=== PATIENT | female | born 1990 | race Caucasian/White ===

== ENCOUNTER → 2016-03-05 | Outpatient (CLI) | payer OTHER ==
[2016-03-05 11:18] LABS: CH 29.2; HCT 41.2 % (34.0-46.0); HDW 2.45; HGB 13.5 gm/dL (11.4-16.0); MCH 29.2 pg (25.0-35.0); MCHC 32.8 g/dL (31.0-37.0); MCV 88.9 fL (80.0-100.0); Mean Platelet Volume 7.9; RBC 4.63 m/uL (3.80-5.40); RDW 13.6 % (11.5-15.5); WBC 7.1 k/uL (3.8-10.6)
[2016-03-05 12:01] LABS: Glucose 81 mg/dL (74-99); Non-African American GFR(MDRD) >60 (>60 ml/min/1.73 sqM)
[2016-03-05 12:32] LABS: Hepatitis B Surface Ag Index 0.06
[2016-03-06 08:04] LABS: HIV-1/HIV-2 Ab Screen NONREAC (NON REAC)
== END | disposition home or self-care (01) ==
LOC: LABWHC1 10:07
PROVIDERS: ATTEND Obstetrics & Gynecology
DX: O26.811 Pregnancy related exhaustion and fatigue, first trimester (principal); Z3A.00 Weeks of gestation of pregnancy not specified
CPT/HCPCS: 36415; 82565; 82947; 85027; 86762; 86780; 86850; 86900; 86901; 87340; 87389

== ENCOUNTER → 2016-03-26 | Outpatient (CLI) | payer OTHER ==
[2016-03-26 14:55] LABS: Basophils % (A) 0 %; CH 29.9; CHCM 33.9; Eosinophils # (A) 0.1 k/uL (0-0.7); Eosinophils % (A) 1 %; HDW 2.49; Luc # (Auto) 0.14; Luc % (Auto) 1; Lymphocytes # (A) 2.7 k/uL (1.0-4.8); Lymphocytes % (A) 25 %; MCH 28.8 pg (25.0-35.0); MCHC 32.5 g/dL (31.0-37.0); MCV 88.4 fL (80.0-100.0); Mean Platelet Volume 8.2; Monocytes # (A) 0.4 k/uL (0-1.0); Monocytes % (A) 3 %; Neutrophils # (A) 7.4 k/uL (1.3-7.7); Neutrophils % (A) 69 %; RBC 4.86 m/uL (3.80-5.40); RDW 13.7 % (11.5-15.5); WBC 10.7 k/uL (3.8-10.6); WBC (Perox) 10.39
== END | disposition home or self-care (01) ==
LOC: LABPAT 14:32
PROVIDERS: ATTEND Obstetrics & Gynecology
DX: Z01.812 Encounter for preprocedural laboratory examination (principal)
CPT/HCPCS: 36415; 85025

== ENCOUNTER 2016-04-08 05:54 | Observation (INO) | payer OTHER ==
--- NOTE | 2016-04-07 09:08 | P.HPOB ---
History of Present Illness H&P Date: 04/07/16 Chief Complaint: cervical incompetence 25 year old presents at 14 weeks 1 day for cervical cerclage. She has had 2 deliveries from cervical incompetence and labor. The first delivered at 26 weeks and the second 32 weeks after cerclage and progesterone injections. She is here today for cerclage placement by [facility] recommendations. Review of Systems All systems: negative Constitutional: Denies chills, Denies fever Eyes: denies blurred vision, denies pain Ears, nose, mouth and throat: Denies headache, Denies sore throat Cardiovascular: Denies chest pain, Denies shortness of breath Respiratory: Denies cough Gastrointestinal: Denies abdominal pain, Denies diarrhea, Denies nausea, Denies vomiting Genitourinary: Denies dysuria, Denies hematuria Musculoskeletal: Denies myalgias Integumentary: Denies pruritus, Denies rash Neurological: Denies numbness, Denies weakness Psychiatric: Denies anxiety, Denies depression Endocrine: Denies fatigue, Denies weight change Past Medical History Past Medical History: GERD/Reflux Additional Past Medical History / Comment(s): Obstetrical history: With patient' s first she spontaneously delivered at 26 weeks. Her second she had a cerclage and progesterone injections. She delivered at 32 weeks after her water broke and the cerclage had to be removed. History of Any Multi-Drug Resistant Organisms: None Reported Additional Past Surgical History / Comment(s): Cerclage Past Anesthesia/Blood Transfusion Reactions: Postoperative Nausea & Vomiting ( PONV) Past Psychological History: Anxiety Smoking Status: Never smoker Past Alcohol Use History: None Reported Past Drug Use History: None Reported - Past Family History Mother Family Medical History: No Reported History Medications and Allergies Home Medications Medication Instructions Recorded Confirmed Type Aby-Xzcy-Senxp Acid 1 each PO HS 08/01/13 04/04/16 History [-U Capsule] Allergies Allergy/AdvReac Type Severity Reaction Status Date / Time No Known Allergies Allergy Verified 04/04/16 08:57 Exam Osteopathic Statement: *. No significant issues noted on an osteopathic structural exam other than those noted in the History and Physical/Consult. HEart: RRR Lungs: CTAB Abdomen: soft, nontender Extremeties: neg lisette's Assessment and Plan (1) Cervical incompetence Status: Acute Plan: 1. cervical cerclage. All R/B/A discussed with patient and family.
[~2016-04-08 05:54] MED LIST: Pre Op ABX Message 1 EACH MISC MISCELLANE ONE
[2016-04-08] MEDS ORDERED: SCOPOLAMINE 1.5MG/72HR PATCH TRANSDERM ONE (06:03)
[2016-04-08] MEDS ORDERED: ONDANSETRON 4 MG/2 ML VIAL IVP ONE (06:03)
[2016-04-08] MEDS ORDERED: DEXAMETHASONE SOD PHOSPHATE 10 MG/ML 1 ML VIAL IV ONE (06:03)
[2016-04-08] MEDS ORDERED: MIDAZOLAM 2 MG/2 ML VIAL IV PRN (06:03)
[2016-04-08] MEDS ORDERED: LACTATED RINGERS 1,000 ML IV SCH (06:03)
[2016-04-08] MEDS ORDERED: HYDROmorphone 1 MG/ML 1 ML SYRINGE IVP PRN (06:03)
[2016-04-08 06:11] VITALS: RESP 16
[2016-04-08] MEDS ORDERED: LIDOCAINE 1% 20 ML VIAL (10MG/ML) FOR IV START SQ ONE (06:11)
--- NOTE | 2016-04-08 07:36 | P.OP ---
Date of Procedure: 04/08/16 Preoperative Diagnosis: 1. incompetent cervix Postoperative Diagnosis: 1. incompetent cervix Procedure(s) Performed: Soliman Cerclage Anesthesia: spinal Surgeon: Madelin Mcintyre Estimated Blood Loss (ml): 3 IV fluids (ml): 300 Urine output (ml): 50 Pathology: none sent Condition: stable Disposition: PACU Operative Findings: cervix is scarred and external os dilated to 1cm, internal os closed. After cerclage cervix is closed and thick. FHT 160 Description of Procedure: Patient is taken the operating room where spinal anesthetic was obtained without difficulty and found be adequate. Patient is prepped draped in normal sterile fashion in dorsal lithotomy position, legs placed in the candycane stirrups. Bladder was drained of all urine. Weighted speculum placed in vagina the anterior lip the cervix was grasped with a ring forcep. A 5 mm Mersilene tape was used on the attached needle to perform a Soliman cerclage. A bite was taken from 12:00 to 9:00 and then 8:00 to 6:00 and then 5:00 to 3:00 and 2:00 back up to 12:00. 6 kn were placed in the 12:00 spot. Hemostasis was noted. Cervix is now found to be closed and thick. Patient tolerated the procedure well, sponge and instrument counts are correct 2. She was taken to recovery room in stable condition.
[2016-04-08] MEDS ORDERED: ACETAMINOPHEN TAB 325 MG TAB PO PRN (07:58)
[2016-04-08 10:00] VITALS: BMI 28.0
[2016-04-08 12:54] VITALS: TEMP 98.1
[2016-04-08 18:25] VITALS: BP 93/52; PULSE 70
--- NOTE | 2016-04-10 12:44 | P.DS ---
Providers Date of admission: 04/08/16 12:08 Expected date of discharge: 04/08/16 Attending physician: Madelin Mcintyre Primary care physician: Stated None - Discharge Diagnosis(es) (1) Cervical incompetence Status: Acute (2) History of cerclage, currently Status: Acute Hospital Course: Patient presented at 14 weeks and 1 day for cerclage placement. She did undergo this procedure without Medication. heart tones before the procedure were 160 and after procedure were 158. She went to the floor to be monitored for contractions and bleeding. She is able tolerate a regular diet and voiding without difficulty. She is ambulating normally and not bleeding or having any cramping. She'll be discharged home to follow-up with me as scheduled. Patient Condition at Discharge: Stable Plan - Discharge Summary Discharge Medication List Xvg-Blgr-Ukfbb Acid [-U Capsule] 1 each PO HS 08/01/13 [History ] Discharge Disposition: HOME SELF-CARE
== END 2016-04-08 19:45 | disposition home or self-care (01) ==
LOC: OR 05:54 → 4FBP 05:54 → EDSTATUS 07:00 → OR 07:40 → 4FBP 07:40
PROVIDERS: ADMIT Obstetrics & Gynecology; ATTEND Obstetrics & Gynecology
DX: O34.32 Maternal care for cervical incompetence, second trimester (principal); Z3A.14 14 weeks gestation of pregnancy; O09.212 Supervision of pregnancy with history of pre-term labor, second trimester; Z79.899 Other long term (current) drug therapy
CPT/HCPCS: 59320; G0378; J2405; 99152; 99153

== ENCOUNTER 2016-05-17 03:55 | Emergency (ER) | payer OTHER ==
[2016-05-17 04:12] VITALS: BP 136/92; PULSE 70; RESP 18; TEMP 97.1
[2016-05-17] MEDS ORDERED: PENICILLIN VK 500MG STARTER 4 TAB BTL PO STA (05:00)
--- NOTE | 2016-05-17 05:00 | ED ---
ENT HPI - General Chief complaint: Dental/Oral Stated complaint: dental pain-radiates to ear Time Seen by Provider: 05/17/16 04:07 Source: patient Mode of arrival: ambulatory Limitations: no limitations - History of Present Illness Initial comments: This patient is 25-year-old woman who presents to be evaluated for right mandibular dental pain. She has been having some intermittent pains for number days but it became much worse last night and into this morning. The patient states that she is and she is not sure what to do. Patient denies significant swelling. She denies any difficulty with speech or swallowing. No dyspnea. MD complaint: tooth pain -: days(s) Severity: severe Quality: aching Consistency: constant Improves with: none Worsens with: none Context- Dental: history of dental caries - Related Data Home Medications Medication Instructions Recorded Confirmed Emf-Pvrs-Rcfnw Acid 1 each PO HS 08/01/13 04/08/16 [-U Capsule] Previous Rx's Medication Instructions Recorded Penicillin V Potassium [Pen Vee K] 500 mg PO QID #28 tab 05/17/16 Allergies Allergy/AdvReac Type Severity Reaction Status Date / Time No Known Allergies Allergy Verified 05/17/16 04:04 Review of Systems ROS Statement: Those systems with pertinent positive or pertinent negative responses have been documented in the HPI. ROS Other: All systems not noted in ROS Statement are negative. Constitutional: Denies: fever, chills ENT: Reports: ear pain, dental pain. Denies: throat pain Respiratory: Denies: cough, dyspnea, stridor Cardiovascular: Denies: chest pain, palpitations Neurological: Denies: headache Past Medical History Past Medical History: GERD/Reflux Additional Past Medical History / Comment(s): Obstetrical history: With patient' s first she spontaneously delivered at 26 weeks. Her second she had a cerclage and progesterone injections. She delivered at 32 weeks after her water broke and the cerclage had to be removed. History of Any Multi-Drug Resistant Organisms: None Reported Additional Past Surgical History / Comment(s): Cerclage Past Anesthesia/Blood Transfusion Reactions: Postoperative Nausea & Vomiting ( PONV) Past Psychological History: Anxiety Smoking Status: Never smoker Past Alcohol Use History: None Reported Past Drug Use History: None Reported - Past Family History Mother Family Medical History: No Reported History General Exam Limitations: no limitations General appearance: alert, in no apparent distress Head exam: Present: atraumatic, normocephalic Eye exam: Present: normal appearance, PERRL, EOMI. Absent: scleral icterus, conjunctival injection ENT exam: Present: mucous membranes moist, TM's normal bilaterally, normal external ear exam, other (Patient has extensive caries to the right mandibular molar. There is no evidence of abscess.) Neck exam: Present: normal inspection. Absent: tenderness, meningismus, lymphadenopathy Respiratory exam: Present: normal lung sounds bilaterally. Absent: respiratory distress, wheezes, rales, rhonchi, stridor Neurological exam: Present: alert Skin exam: Present: warm, dry, intact, normal color. Absent: rash Course Vital Signs 05/17/16 04:01 Temperature 97.1 F L Pulse Rate 70 Respiratory 18 Rate Blood Pressure 136/92 O2 Sat by Pulse 100 Oximetry Procedures - Nerve Block Consent Obtained: verbal consent Time Out Performed: Yes Local Anesthetic Used: Lidocaine 1% Amount of anesthesia used: 2 Side: right Intraoral Nerve Block: inferior alveolar Procedure Successful: Yes Complications: none Patient Tolerated Procedure: well, no complications Medical Decision Making - Medical Decision Making Patient is 25-year-old woman who complained of severe dental pain and has extensive dental caries. She did request additional analgesia to the Tylenol. Patient was given dental block which did decrease her pain, and she was following well enough to go home to sleep. She will follow up with the dentist to address the caries. Discussed return parameters and appropriate follow-up Disposition Clinical Impression: Dental caries Disposition: HOME SELF-CARE Condition: Fair Instructions: Dental Caries (ED), Toothache (ED) Prescriptions: Penicillin V Potassium [Pen Vee K] 500 mg PO QID #28 tab Referrals: None,Stated [Primary Care Provider] - 1-2 days
== END 2016-05-17 05:11 | disposition home or self-care (01) ==
LOC: EC 03:55
DX: K02.9 Dental caries, unspecified (principal); H92.09 Otalgia, unspecified ear; Z79.899 Other long term (current) drug therapy
CPT/HCPCS: 99282

== ENCOUNTER → 2016-06-16 | Outpatient (CLI) | payer OTHER ==
[2016-06-16 17:36] LABS: CHCM 32.7; HCT 36.4 % (34.0-46.0); HGB 11.7 gm/dL (11.4-16.0); MCH 29.6 pg (25.0-35.0); MCHC 32.2 g/dL (31.0-37.0); Mean Platelet Volume 8.6; RBC 3.96 m/uL (3.80-5.40); RDW 13.5 % (11.5-15.5); WBC 9.2 k/uL (3.8-10.6)
== END | disposition home or self-care (01) ==
LOC: LABWHC1 16:18
PROVIDERS: ATTEND Obstetrics & Gynecology
DX: Z34.82 Encounter for supervision of other normal pregnancy, second trimester (principal); Z3A.00 Weeks of gestation of pregnancy not specified
CPT/HCPCS: 36415; 82950; 85027

== ENCOUNTER 2016-07-24 23:49 | Outpatient (CLI) | payer OTHER ==
[2016-07-25 00:33] VITALS: BP 130/78; PULSE 97; RESP 18; TEMP 96.8
--- NOTE | 2016-08-03 14:56 | P.MSEPDOC ---
Presenting Problems - Arrival Data Date of Arrival on Unit: 07/24/16 Time of Arrival on Unit: 23:49 Mode of Transport: Wheelchair - Complaint OB-Reason for Admission/Chief Complaint: Pain Medical History - Information : 3 Para: 2 Term: 0 : 2 Abortions: Spontaneous or Elective: 0 Number of Living Children: 2 - Gestational Age Expected Date of Delivery: 10/02/16 Gestational Age by BRIAN (wks/days): 31 Weeks and 3 Days - History Complications: Prior Review of Systems - Review of Systems Constitutional: No problems Breast: No problems ENT: No problems Cardiovascular: No problems Respiratory: No problems Gastrointestinal: No problems Genitourinary: No problems Musculoskeletal: No problems Neurological: No problems Skin: No problems Vital Signs - Temperature Temperature: 96.8 F Temperature Source: Temporal Artery Scan - Pulse Right Pulse Rate: 97 Pulse Assessment Method: Pulse Oximetry - Respirations Respiratory Rate: 18 Oxygen Delivery Method: Room Air O2 Sat by Pulse Oximetry: 100 - Blood Pressure Right Arm Blood Pressure: 130/78 Blood Pressure Mean: 95 Blood Pressure Source: Automatic Cuff Medical Screen Scoring (Pre) - Cervical Exam Dilation: 0 cm = 0 Membranes: Intact - Uterine Contractions Frequency: > 5 minutes apart = 1 Duration: N/A Intensity: N/A - Maternal Vital Signs Maternal Temperature: N/A Maternal Blood Pressure: N/A Signs of Preeclampsia: N/A Maternal Respirations: N/A - Maternal Trauma Maternal Trauma: N/A - Assessment Baseline FHR: 150 Heart Rate - NICHD Category: Category I (Normal) = 0 NST: Reactive Position: N/A Station: N/A - Total Score Total Score (Pre): 1 - Level of Risk Level of Risk: Low (0-5) Physician Notification (Pre) - Physician Notified Physician Notified Date: 07/25/16 Physician Notified Time: 00:18 Physician/Practitioner Notifed:: Dr Miramontes Spoke With: Telephone New Order Received: Yes (order for discharge) Medical Screen Scoring (Post) - Uterine Contractions Frequency: > 5 minutes apart = 1 Duration: N/A Intensity: N/A - Maternal Vital Signs Maternal Temperature: N/A Maternal Blood Pressure: N/A Signs of Preeclampsia: N/A Maternal Respirations: N/A - Maternal Trauma Maternal Trauma: N/A - Assessment Heart Rate: 145 Heart Rate - NICHD Category: Category I (Normal) = 0 NST: Reactive Position: N/A Station: N/A - Total Score Total Score (Post): 1 - Post Treatment Level of Risk Post Treatment Level of Risk: Low (0-5) Disposition - Disposition OB Disposition: Discharge to home Discharge Date: 07/25/16 Discharge Time: 02:50 I agree with the RN Medical Screening Exam: Yes Risk & Benefit of care provided described in d/c instruction: Yes Diagnosis: 31 WEEKS GESTATION OF
== END 2016-07-25 02:50 | disposition home or self-care (01) ==
LOC: FBPOP 23:49
PROVIDERS: ATTEND Obstetrics & Gynecology
DX: R52 Pain, unspecified (principal); Z3A.31 31 weeks gestation of pregnancy
CPT/HCPCS: 59025; G0463; 99213

== ENCOUNTER 2016-08-03 01:50 | Observation (INO) | payer OTHER ==
[2016-08-03 02:54] LABS: Amorphous Sediment,Urine Occasional /hpf; Appearance,Urine Cloudy (Clear); Bacteria,Urine Rare /hpf; Bilirubin,Urine Negative (Negative); Glucose,Urine (UA) Negative (Negative); Ketones,Urine Negative (Negative); Leukocyte Esterase,Urine Large (Negative); Mucus,Urine Rare /hpf; Nitrite,Urine Negative (Negative); Particle Count 15378; Protein,Urine Negative (Negative); RBC,Urine 1 /hpf (0-5); Specific Gravity,Urine 1.004 (1.001-1.035); Squamous Epithelial Cell,Urine 6 /hpf (0-4); UA Billing (MACRO vs. MICRO) MICRO; Urobilinogen,Urine <2.0 mg/dL (<2.0); WBC,Urine 15 /hpf (0-5)
[2016-08-03] MEDS: BETAMET ACET-BETAMETH SOD PHOS 6 MG/ML VIAL IM SCH (04:14)
[2016-08-03 04:36] VITALS: BMI 29.5
--- NOTE | 2016-08-03 07:32 | P.HPOB ---
History of Present Illness H&P Date: 08/03/16 Chief Complaint: Lower back pain This is a 25-year-old female 3 para 2 with an estimated date of confinement of 10/06/2016, estimated gestational age of 30-6/7 weeks, who presents to labor and delivery complaining of lower back pain and vaginal pressure. She does have a history of a cerclage placed at 14 weeks during this . She also has a history of 2 deliveries at 26 and 32 weeks. She denies any contractions or rupture of membranes. She denies any vaginal bleeding. She was seen in triage and show not to be licha however her fibronectin is positive this time. She had a negative fibronectin approximately 9 days ago. Her care has been with Dr. Mcintyre and she has also been seen by maternal medicine earlier in the . She is getting weekly Rosangela injections. labs: GC/chlamydia-negative HIV-nonreactive Blood type-A+ Antibody screen-negative Rubella-immune The placenta antibody-negative Hemoglobin-13.5 Hepatitis B surface antigen-negative Random glucose-81 One hour Glucola-83 Obstetrical history: . She has a history of 2 vaginal births at 26 and 32 weeks. She did have a cerclage placed with her second but had spontaneous rupture of membranes at 32 weeks. Her second child has mild cerebral palsy. Review of Systems Constitutional: Denies chills, Denies fever Cardiovascular: Denies chest pain, Denies shortness of breath Respiratory: Denies cough Gastrointestinal: Denies abdominal pain, Denies diarrhea, Denies nausea, Denies vomiting Genitourinary: Reports pelvic pain, Reports Musculoskeletal: Reports low back pain Integumentary: Denies pruritus, Denies rash Neurological: Denies numbness, Denies weakness Past Medical History Past Medical History: GERD/Reflux Additional Past Medical History / Comment(s): Obstetrical history: With patient' s first she spontaneously delivered at 26 weeks. Her second she had a cerclage and progesterone injections. She delivered at 32 weeks after her water broke and the cerclage had to be removed. History of Any Multi-Drug Resistant Organisms: None Reported Additional Past Surgical History / Comment(s): Cerclage 2 Past Anesthesia/Blood Transfusion Reactions: Postoperative Nausea & Vomiting ( PONV) Past Psychological History: Anxiety Smoking Status: Never smoker Past Alcohol Use History: None Reported Past Drug Use History: None Reported - Past Family History Mother Family Medical History: No Reported History Medications and Allergies Home Medications Medication Instructions Recorded Confirmed Type Yta-Ftgx-Uakmc Acid 1 each PO HS 08/01/13 08/03/16 History [-U Capsule] Allergies Allergy/AdvReac Type Severity Reaction Status Date / Time No Known Allergies Allergy Verified 08/03/16 02:02 Exam Osteopathic Statement: *. No significant issues noted on an osteopathic structural exam other than those noted in the History and Physical/Consult. - Vital Signs Vital signs: Vital Signs Temp Pulse Resp BP 08/03/16 04:22 96.5 F L 85 16 141/86 08/03/16 02:04 96.9 F L 90 16 128/79 Intake and Output 08/02/16 08/03/16 08/03/16 22:59 06:59 14:59 Other: Weight 75.75 kg HEENT: Within normal limits Heart: Regular rate and rhythm Lungs: Clear to auscultation bilaterally Abdomen: , soft, nontender Cervix exam: Cervix is closed, thick, and high with cerclage palpable and not stretched. Extremities: Negative Homans heart tones: Reactive Contractions: None Results Abnormal Lab Results - Last 24 Hours (Table) 08/03/16 Range/Units 02:37 Urine Appearance Cloudy H (Clear) Ur Leukocyte Esterase Large H (Negative) Urine WBC 15 H (0-5) /hpf Ur Squamous Epith Cells 6 H (0-4) /hpf Amorphous Sediment Occasional H (None) /hpf Urine Bacteria Rare H (None) /hpf Urine Mucus Rare H (None) /hpf Assessment and Plan (1) 30 weeks gestation of Status: Acute (2) Positive fibronectin at 22 weeks to 34 weeks gestation Status: Acute (3) History of cerclage, currently Status: Acute Plan: Will admit and administer Celestone 12 mg every 24 hours for 2 doses. We'll monitor with nonstress tests every shift or as needed for contractions. If any concern for labor, will plan transfer to maternal medicine.
[2016-08-03] MEDS: ACETAMINOPHEN TAB 500 MG TAB PO PRN ×2 (07:55→23:52)
--- NOTE | 2016-08-03 15:58 | P.MSEPDOC ---
Presenting Problems - Arrival Data Date of Arrival on Unit: 08/03/16 Time of Arrival on Unit: 01:56 Mode of Transport: Wheelchair - Complaint OB-Reason for Admission/Chief Complaint: Pain Comment: abdominal and back, constant Medical History - Information : 3 Para: 2 Term: 0 : 2 Abortions: Spontaneous or Elective: 0 Number of Living Children: 2 - Gestational Age Expected Date of Delivery: 10/06/16 Gestational Age by BRIAN (wks/days): 30 Weeks and 6 Days - History Complications: Incompetent Cervix Comment: cerclage in place Review of Systems - Review of Systems Constitutional: No problems Breast: No problems ENT: No problems Cardiovascular: No problems Respiratory: No problems Gastrointestinal: No problems Genitourinary: No problems Musculoskeletal: No problems Neurological: No problems Skin: No problems Vital Signs - Temperature Temperature: 96.5 F Temperature Source: Temporal Artery Scan - Pulse Right Brachial Pulse Rate: 85 Pulse Assessment Method: Automatic Cuff - Respirations Respiratory Rate: 16 Oxygen Delivery Method: Room Air - Blood Pressure Right Arm Blood Pressure: 141/86 Blood Pressure Mean: 104 Blood Pressure Source: Automatic Cuff Medical Screen Scoring (Pre) - Cervical Exam Dilation: 0 cm = 0 Membranes: Intact - Uterine Contractions Frequency: N/A Duration: N/A Intensity: N/A - Assessment Baseline FHR: 140 Heart Rate - NICHD Category: Category II (Indeterminate) = 3 NST: Reactive - Total Score Total Score (Pre): 3 - Level of Risk Level of Risk: Low (0-5) Physician Notification (Pre) - Physician Notified Physician Notified Date: 08/03/16 Physician Notified Time: 02:28 Spoke With: Addy New Order Received: Yes Disposition - Disposition OB Disposition: Admit, Observe, LDRP Suite I agree with the RN Medical Screening Exam: Yes Risk & Benefit of care provided described in d/c instruction: Yes Diagnosis: MATERNAL CARE FOR OTH ABNLT OF CERVIX, SECOND TRIMESTER (Incompetent cervix) Additional Diagnoses: +FFN
[2016-08-04] MEDS: BETAMET ACET-BETAMETH SOD PHOS 6 MG/ML VIAL IM SCH (04:00)
[2016-08-04 09:25] VITALS: BP 121/68; PULSE 93; RESP 18; TEMP 97.8
--- NOTE | 2016-08-04 12:36 | P.DS ---
Providers Date of admission: 08/03/16 04:03 Expected date of discharge: 08/04/16 Attending physician: Sita Daly Primary care physician: Sita Daly - Discharge Diagnosis(es) (1) Positive fibronectin at 22 weeks to 34 weeks gestation Current Visit: Yes Status: Acute (2) History of cerclage, currently Current Visit: No Status: Acute Hospital Course: Patient was complaining of feeling some back pain she felt they may be contractions. She presented to triage and a fibronectin was positive. She is admitted for Celestone injections of which she got 2, 24 hours apart. She does have a cerclage in with this and is on Rosangela injections weekly for history of delivery 2. She has not had any contractions and her cervix remains closed, thick, high. There is no tension on the cervix or cerclage. She'll be discharged home to follow-up with me tomorrow for an ultrasound. Plan - Discharge Summary New Discharge Prescriptions: No Action Ilv-Gkdu-Pdfwq Acid [-U Capsule] 1 each PO HS Discharge Medication List Fsy-Xvbp-Kdwdj Acid [-U Capsule] 1 each PO HS 08/01/13 [History ] Follow up Appointment(s)/Referral(s): Madelin Mcintyre DO [Doctor of Osteopathic Medicine] - 08/05/16 Discharge Disposition: HOME SELF-CARE
== END 2016-08-04 14:10 | disposition home or self-care (01) ==
LOC: FBPOP 01:50 → 4FBP 04:03
PROVIDERS: ADMIT Obstetrics & Gynecology; ATTEND Obstetrics & Gynecology
DX: O99.613 Diseases of the digestive system complicating pregnancy, third trimester (principal); O99.343 Other mental disorders complicating pregnancy, third trimester; O09.213 Supervision of pregnancy with history of pre-term labor, third trimester; Z3A.34 34 weeks gestation of pregnancy; F41.9 Anxiety disorder, unspecified; K21.9 Gastro-esophageal reflux disease without esophagitis
CPT/HCPCS: 59025; 96372; 82731; 81001; 87086; G0463; G0378 ×2; J0702 ×2; 99213

== ENCOUNTER 2016-08-15 15:05 | Outpatient (CLI) | payer OTHER ==
[2016-08-15 15:19] VITALS: BP 118/77; PULSE 100; RESP 17; TEMP 96.7
== END 2016-08-15 17:10 | disposition home or self-care (01) ==
LOC: FBPOP 15:05
PROVIDERS: ATTEND Obstetrics & Gynecology
DX: O26.93 Pregnancy related conditions, unspecified, third trimester (principal); Z3A.32 32 weeks gestation of pregnancy
CPT/HCPCS: 59025

== ENCOUNTER 2016-09-09 07:08 | Outpatient (CLI) | payer OTHER ==
[2016-09-09 09:36] VITALS: BP 120/75; PULSE 69; RESP 18; TEMP 96.9
--- NOTE | 2016-09-09 13:05 | P.HPOB ---
History of Present Illness H&P Date: 09/09/16 Chief Complaint: cerclage removal 25 year old presents at 36 weeks 3 days for cerclage removal. heart tones 135-140 with moderate variability and reactive. She is not licha. Review of Systems All systems: negative Constitutional: Denies chills, Denies fever Eyes: denies blurred vision, denies pain Ears, nose, mouth and throat: Denies headache, Denies sore throat Cardiovascular: Denies chest pain, Denies shortness of breath Respiratory: Denies cough Gastrointestinal: Denies abdominal pain, Denies diarrhea, Denies nausea, Denies vomiting Genitourinary: Denies dysuria, Denies hematuria Musculoskeletal: Denies myalgias Integumentary: Denies pruritus, Denies rash Neurological: Denies numbness, Denies weakness Psychiatric: Denies anxiety, Denies depression Endocrine: Denies fatigue, Denies weight change Past Medical History Past Medical History: GERD/Reflux Additional Past Medical History / Comment(s): Obstetrical history: With patient' s first she spontaneously delivered at 26 weeks. Her second she had a cerclage and progesterone injections. She delivered at 32 weeks after her water broke and the cerclage had to be removed. With this the cerclage was placed at 14 weeks and she has been getting jai injections weekly until now. History of Any Multi-Drug Resistant Organisms: None Reported Additional Past Surgical History / Comment(s): Cerclage 2 Past Anesthesia/Blood Transfusion Reactions: Postoperative Nausea & Vomiting ( PONV) Smoking Status: Never smoker - Past Family History Mother Family Medical History: No Reported History Medications and Allergies Home Medications Medication Instructions Recorded Confirmed Type Ofu-Iwbs-Pboxq Acid 1 each PO HS 08/01/13 08/15/16 History [-U Capsule] Allergies Allergy/AdvReac Type Severity Reaction Status Date / Time No Known Allergies Allergy Verified 09/09/16 07:20 Exam Osteopathic Statement: *. No significant issues noted on an osteopathic structural exam other than those noted in the History and Physical/Consult. - Vital Signs Vital signs: Vital Signs Temp Pulse Resp BP 09/09/16 08:15 96.9 F L 69 18 120/75 Intake and Output 09/08/16 09/09/16 09/09/16 22:59 06:59 14:59 Other: Weight 80.739 kg Patient Weight 09/10/16 06:59 Weight 80.739 kg Heart: Regular rate and rhythm Lungs: Clear to auscultation bilaterally Abdomen: Soft, nontender Extremities: Negative Homans sign Assessment and Plan (1) Cervical incompetence Status: Acute (2) with 36 to 37 weeks completed gestation Status: Acute Plan: 1. remove cerclage and monitor 2. recheck cervix a few hours after cerclage removal to ensure she is not going into labor.
--- NOTE | 2016-09-09 13:10 | P.PCN ---
Date of Procedure: 09/09/16 Preoperative Diagnosis: 1. cervical incompetence with cerclage Postoperative Diagnosis: 1. cervical incompetence with cerclage Procedure(s) Performed: cerclage removal Implants: Anesthesia: none Surgeon: Madelin Mcintyre Estimated Blood Loss (ml): 0 Pathology: none sent Condition: stable Indications for Procedure: Operative Findings: cervix is 3/70/-3 Description of Procedure: Legs placed in stirrups, [place] speculum placed in the vagina. Cerclage easily seen. George used to grasp not of the cerclage. The sterile scissors were used to cut the suture and cerclage was easily removed. Patient tolerated this very well. Digital exam revealed the cervix to be dilated 3 cm, 70% effaced, -3 station.
--- NOTE | 2016-09-09 13:11 | P.DS ---
Providers Date of admission: 09/09/16 Expected date of discharge: 09/09/16 Attending physician: Madelin Mcintyre - Discharge Diagnosis(es) (1) Cervical incompetence Current Visit: No Status: Acute (2) with 36 to 37 weeks completed gestation Current Visit: Yes Status: Acute Hospital Course: Patient presented for cerclage removal. The cerclage was easily removed. She was kept several hours on the monitor and walked around to ensure that she did not go into labor. Her cervix is dilated 3 cm, 70% effaced, -3 station. Her cervix did not change. She had few contractions. NST was reactive. She was discharged home with labor precautions. She'll follow-up with me in one week. Patient Condition at Discharge: Stable Plan - Discharge Summary New Discharge Prescriptions: No Action Avd-Peyv-Dzdta Acid [-U Capsule] 1 each PO HS Discharge Medication List Ixo-Okre-Cczpi Acid [-U Capsule] 1 each PO HS 08/01/13 [History ]
--- NOTE | 2016-09-09 13:11 | P.MSEPDOC ---
Presenting Problems - Arrival Data Date of Arrival on Unit: 09/09/16 Time of Arrival on Unit: 07:08 Mode of Transport: Ambulatory - Complaint OB-Reason for Admission/Chief Complaint: Other Comment: removal of cerclage Medical History - Information : 3 Para: 2 Term: 0 : 2 Abortions: Spontaneous or Elective: 0 Number of Living Children: 2 - Gestational Age Expected Date of Delivery: 10/06/16 Gestational Age by BRIAN (wks/days): 36 Weeks and 1 Days - History Complications: Prior Review of Systems - Review of Systems Constitutional: No problems Breast: No problems ENT: No problems Cardiovascular: No problems Respiratory: No problems Gastrointestinal: No problems Genitourinary: No problems Musculoskeletal: No problems Neurological: No problems Skin: No problems Vital Signs - Temperature Temperature: 96.9 F Temperature Source: Temporal Artery Scan - Pulse Right Brachial Pulse Rate: 69 - Respirations Respiratory Rate: 18 Oxygen Delivery Method: Room Air - Blood Pressure Right Arm Blood Pressure: 120/75 Blood Pressure Mean: 90 Blood Pressure Source: Automatic Cuff Medical Screen Scoring (Pre) - Cervical Exam Dilation: 1-3 cm = 1 Effacement: More than 50% = 2 Membranes: Intact - Uterine Contractions Frequency: > or = 36 weeks =2 Duration: > 40 seconds = 2 - Maternal Vital Signs Maternal Temperature: N/A Maternal Blood Pressure: N/A Signs of Preeclampsia: N/A Maternal Respirations: N/A - Maternal Trauma Maternal Trauma: N/A - Assessment Baseline FHR: 140 - Total Score Total Score (Pre): 7 - Level of Risk Level of Risk: Medium (6-9) Physician Notification (Pre) - Physician Notified Physician Notified Date: 09/09/16 Physician Notified Time: 08:06 Physician/Practitioner Notifed:: Dr. Mcintyre Spoke With: Dr. Mcintyre New Order Received: Yes - Notification Comment Comment: cervical cerclage removed, pt to remain here till noon, and be up and walking around, Dr. Mcintyre will recheck her cervix at noon and make determination whether pt to be admitted or discharge home I agree with the RN Medical Screening Exam: Yes Risk & Benefit of care provided described in d/c instruction: Yes Diagnosis: 36 WEEKS GESTATION OF
== END 2016-09-09 12:35 | disposition home or self-care (01) ==
LOC: FBPOP 07:08
PROVIDERS: ATTEND Obstetrics & Gynecology
DX: O34.33 Maternal care for cervical incompetence, third trimester (principal); Z3A.36 36 weeks gestation of pregnancy
CPT/HCPCS: 59025; 59899; G0463; 99213

== ENCOUNTER 2016-09-13 23:42 | Outpatient (CLI) | payer OTHER ==
[2016-09-14 01:13] VITALS: BP 135/94; PULSE 100; RESP 15; TEMP 96.8
--- NOTE | 2016-09-14 19:40 | P.MSEPDOC ---
Presenting Problems - Arrival Data Date of Arrival on Unit: 09/13/16 Time of Arrival on Unit: 23:45 Mode of Transport: Ambulatory - Complaint OB-Reason for Admission/Chief Complaint: Possible Onset of Labor Medical History - Information : 3 Para: 2 Term: 0 : 2 Abortions: Spontaneous or Elective: 0 Number of Living Children: 2 - Gestational Age Expected Date of Delivery: 10/06/16 Gestational Age by BRIAN (wks/days): 36 Weeks and 6 Days - History Complications: Incompetent Cervix Review of Systems - Review of Systems Constitutional: No problems Breast: No problems ENT: No problems Cardiovascular: No problems Respiratory: No problems Gastrointestinal: No problems Genitourinary: No problems Musculoskeletal: No problems Neurological: No problems Skin: No problems Vital Signs - Temperature Temperature: 96.8 F Temperature Source: Temporal Artery Scan - Pulse Pulse Oximetery Pulse Rate: 100 Pulse Assessment Method: Automatic Cuff - Respirations Respiratory Rate: 15 Oxygen Delivery Method: Room Air O2 Sat by Pulse Oximetry: 98 - Blood Pressure Right Arm Blood Pressure: 135/94 Blood Pressure Mean: 107 Blood Pressure Source: Automatic Cuff Medical Screen Scoring (Pre) - Cervical Exam Dilation: 1-3 cm = 1 Effacement: More than 50% = 2 Membranes: Intact - Uterine Contractions Frequency: > 5 minutes apart = 1 Duration: > 40 seconds = 2 Intensity: N/A - Maternal Vital Signs Maternal Temperature: N/A Maternal Blood Pressure: N/A Signs of Preeclampsia: N/A Maternal Respirations: N/A - Maternal Trauma Maternal Trauma: N/A - Assessment Baseline FHR: 145 Heart Rate - NICHD Category: Category I (Normal) = 0 NST: Reactive Position: N/A Station: N/A - Total Score Total Score (Pre): 6 - Level of Risk Level of Risk: Medium (6-9) Physician Notification (Pre) - Physician Notified Physician Notified Date: 09/14/16 Physician Notified Time: 00:20 Physician/Practitioner Notifed:: Francisco Javier Sharma Order Received: Yes - Notification Comment Comment: recheck pt after 1 hour Medical Screen Scoring (Post) - Cervical Exam Dilation: 1-3 cm = 1 Effacement: More than 50% = 2 Membranes: Intact - Uterine Contractions Frequency: > 5 minutes apart = 1 Duration: > 40 seconds = 2 Intensity: N/A - Maternal Vital Signs Maternal Temperature: N/A Maternal Blood Pressure: N/A Signs of Preeclampsia: N/A Maternal Respirations: N/A - Maternal Trauma Maternal Trauma: N/A - Assessment Heart Rate: 145 Heart Rate - NICHD Category: Category I (Normal) = 0 NST: Reactive Position: N/A Station: N/A - Total Score Total Score (Post): 6 - Post Treatment Level of Risk Post Treatment Level of Risk: Medium (6-9) Disposition - Disposition OB Disposition: Discharge to home Discharge Date: 09/14/16 Discharge Time: 01:14 I agree with the RN Medical Screening Exam: Yes Risk & Benefit of care provided described in d/c instruction: Yes Diagnosis: FALSE LABOR AT OR AFTER 37 COMPLETED WEEKS OF GESTATION
== END 2016-09-14 01:15 | disposition home or self-care (01) ==
LOC: FBPOP 23:42
PROVIDERS: ATTEND Obstetrics & Gynecology
DX: O47.1 False labor at or after 37 completed weeks of gestation (principal); Z3A.36 36 weeks gestation of pregnancy
CPT/HCPCS: 59025; G0463; 99213

== ENCOUNTER 2016-09-19 11:59 | Outpatient (CLI) | payer OTHER ==
[2016-09-19 13:22] VITALS: BP 130/86; PULSE 110; RESP 16; TEMP 97.1
--- NOTE | 2016-09-20 10:20 | P.MSEPDOC ---
Presenting Problems - Arrival Data Date of Arrival on Unit: 09/19/16 Time of Arrival on Unit: 12:00 Mode of Transport: Ambulatory - Complaint OB-Reason for Admission/Chief Complaint: Pain Comment: Lower abdomen Medical History - Information : 3 Para: 2 Term: 0 : 2 Abortions: Spontaneous or Elective: 0 Number of Living Children: 2 - Gestational Age Expected Date of Delivery: 10/06/16 Gestational Age by BRIAN (wks/days): 37 Weeks and 5 Days - History Complications: Incompetent Cervix Review of Systems - Review of Systems Constitutional: No problems Breast: No problems ENT: No problems Cardiovascular: No problems Respiratory: No problems Gastrointestinal: No problems Genitourinary: No problems Musculoskeletal: No problems Neurological: No problems Skin: No problems Vital Signs - Temperature Temperature: 97.1 F Temperature Source: Temporal Artery Scan - Pulse Right Sitting Brachial Pulse Rate: 110 Pulse Assessment Method: Automatic Cuff - Respirations Respiratory Rate: 16 Oxygen Delivery Method: Room Air - Blood Pressure Right Arm Sitting Blood Pressure: 130/86 Blood Pressure Mean: 100 Blood Pressure Source: Automatic Cuff Medical Screen Scoring (Pre) - Cervical Exam Dilation: 1-3 cm = 1 Effacement: More than 50% = 2 Membranes: Intact - Uterine Contractions Frequency: N/A - Maternal Vital Signs Maternal Temperature: N/A Maternal Blood Pressure: N/A Signs of Preeclampsia: N/A Maternal Respirations: N/A - Maternal Trauma Maternal Trauma: N/A - Assessment Baseline FHR: 155 Heart Rate - NICHD Category: Category I (Normal) = 0 NST: Reactive - Total Score Total Score (Pre): 3 - Level of Risk Level of Risk: Low (0-5) Physician Notification (Pre) - Physician Notified Physician Notified Date: 09/19/16 Physician Notified Time: 12:30 Physician/Practitioner Notifed:: Francisco Javier Spoke With: Francisco Javier New Order Received: Yes - Notification Comment Comment: D/C home c\no change in SVE Disposition - Disposition OB Disposition: Discharge to home Discharge Date: 09/19/16 Discharge Time: 13:20 I agree with the RN Medical Screening Exam: Yes Risk & Benefit of care provided described in d/c instruction: Yes Diagnosis: FALSE LABOR AT OR AFTER 37 COMPLETED WEEKS OF GESTATION
== END 2016-09-19 13:20 | disposition home or self-care (01) ==
LOC: FBPOP 11:59
PROVIDERS: ATTEND Obstetrics & Gynecology
DX: O47.1 False labor at or after 37 completed weeks of gestation (principal); Z3A.37 37 weeks gestation of pregnancy
CPT/HCPCS: 59025; G0463; 99213

== ENCOUNTER 2016-09-24 21:05 | Inpatient (IN) | payer OTHER ==
[2016-09-24] MEDS ORDERED: LIDOCAINE 1% (PF) 10 MG/ML (30 ML SDV) SQ PRN (22:27)
[2016-09-24] MEDS ORDERED: CARBOPROST TROMETHAMINE 250 MCG/ML 1 ML AMP IM PRN (22:27)
[2016-09-24] MEDS ORDERED: METHYLERGONOVINE 0.2 MG/ML 1 ML AMP IM PRN (22:27)
[2016-09-24] MEDS ORDERED: OXYTOCIN 10 UNIT/ML 1 ML VIAL IM PRN (22:27)
[2016-09-24] MEDS ORDERED: TERBUTALINE 1 MG/ML VIAL SQ PRN (22:27)
[2016-09-24] MEDS ORDERED: OXYTOCIN 20 UNITS/1000 ML NS 1,000 ML IV SCH (22:30)
[2016-09-24] MEDS: LACTATED RINGERS 1,000 ML IV SCH ×2 (22:40→22:57)
[2016-09-24 22:47] LABS: Anisocytosis Slight; Basophils # (A) 0.1 k/uL (0-0.2); Basophils % (A) 0 %; CH 27.1; CHCM 32.1; Eosinophils # (A) 0.2 k/uL (0-0.7); Eosinophils % (A) 1 %; HCT 37.1 % (34.0-46.0); HDW 3.16; HGB 11.5 gm/dL (11.4-16.0); Hypochromasia Slight; Luc # (Auto) 0.37; Luc % (Auto) 2; Lymphocytes # (A) 2.2 k/uL (1.0-4.8); Lymphocytes % (A) 13 %; MCH 26.2 pg (25.0-35.0); MCHC 30.9 g/dL (31.0-37.0); MCV 84.7 fL (80.0-100.0); Mean Platelet Volume 9.6; Monocytes # (A) 0.7 k/uL (0-1.0); Monocytes % (A) 4 %; Neutrophils # (A) 13.2 k/uL (1.3-7.7); Neutrophils % (A) 79 %; RBC 4.38 m/uL (3.80-5.40); RDW 16.2 % (11.5-15.5); WBC 16.7 k/uL (3.8-10.6); WBC (Perox) 18.27
[2016-09-24] MEDS ORDERED: SODIUM CHLORIDE 0.9% 100 ML BAG ONE (23:00)
[2016-09-24] MEDS ORDERED: BUPIVACAINE (PF) 0.25% 30 ML VIAL ONE (23:00)
[2016-09-24] MEDS ORDERED: fentaNYL (PF) 50 MCG/ML 5 ML AMP ONE (23:00)
[2016-09-24] MEDS ORDERED: BUPIVACAINE (PF) 0.25% 25 ML, fentaNYL (PF) 200 MCG in SODIUM CHLORIDE 0.9% 71 ML EPIDURAL ONE (23:28)
[2016-09-24] MEDS ORDERED: LACTATED RINGERS 1,000 ML IV SCH (23:30)
--- NOTE | 2016-09-24 23:34 | P.HPOB ---
History of Present Illness H&P Date: 09/24/16 Chief Complaint: Labor 26 year old presents at 38 weeks 2 days in labor. Her cervix is 5/80/-2 and she is licha every 2-4 minutes. heart tones are 140-145 with moderate variability and reactive. Review of Systems All systems: negative Constitutional: Denies chills, Denies fever Eyes: denies blurred vision, denies pain Ears, nose, mouth and throat: Denies headache, Denies sore throat Cardiovascular: Denies chest pain, Denies shortness of breath Respiratory: Denies cough Gastrointestinal: Denies abdominal pain, Denies diarrhea, Denies nausea, Denies vomiting Genitourinary: Denies dysuria, Denies hematuria Musculoskeletal: Denies myalgias Integumentary: Denies pruritus, Denies rash Neurological: Denies numbness, Denies weakness Psychiatric: Denies anxiety, Denies depression Endocrine: Denies fatigue, Denies weight change Past Medical History Past Medical History: GERD/Reflux Additional Past Medical History / Comment(s): Obstetrical history: With patient' s first she spontaneously delivered at 26 weeks. Her second she had a cerclage and progesterone injections. She delivered at 32 weeks after her water broke and the cerclage had to be removed. With this the cerclage was placed at 14 weeks and she has been getting jai injections weekly until 36 weeks. Cerclage was removed at 36 weeks and she was 3-4/70/-2. A+, abs neg, Rub Imm, RPR NR, Hep B neg, HIV NR. GBS neg. History of Any Multi-Drug Resistant Organisms: None Reported Additional Past Surgical History / Comment(s): Cerclage 2 Past Anesthesia/Blood Transfusion Reactions: Postoperative Nausea & Vomiting ( PONV) Past Psychological History: ADD/ADHD, Anxiety Smoking Status: Never smoker Past Alcohol Use History: None Reported Past Drug Use History: None Reported - Past Family History Mother Family Medical History: No Reported History Medications and Allergies Home Medications Medication Instructions Recorded Confirmed Type Xlu-Dhoi-Dmoup Acid 1 each PO HS 08/01/13 09/24/16 History [-U Capsule] Allergies Allergy/AdvReac Type Severity Reaction Status Date / Time No Known Allergies Allergy Verified 09/19/16 12:06 Exam Osteopathic Statement: *. No significant issues noted on an osteopathic structural exam other than those noted in the History and Physical/Consult. - Vital Signs Vital signs: Vital Signs Temp Pulse Resp BP 09/24/16 22:23 97.0 F L 112 H 18 136/87 Intake and Output 09/24/16 09/24/16 09/25/16 14:59 22:59 06:59 Other: Weight 79.832 kg Patient Weight 09/25/16 06:59 Weight 79.832 kg Heart: Regular rate and rhythm Lungs: Clear to auscultation bilaterally Abdomen: Soft, nontender Extremities: Negative Homans sign Results Result Diagrams: 09/24/16 22:35 Abnormal Lab Results - Last 24 Hours (Table) 09/24/16 Range/Units 22:35 WBC 16.7 H (3.8-10.6) k/uL MCHC 30.9 L (31.0-37.0) g/dL RDW 16.2 H (11.5-15.5) % Neutrophils # 13.2 H (1.3-7.7) k/uL Assessment and Plan (1) Normal labor Status: Acute Plan: 1. Admit to family place 2. Expectant management 3. Anticipate normal vaginal delivery
--- NOTE | 2016-09-24 23:36 | P.MSEPDOC ---
Presenting Problems - Arrival Data Date of Arrival on Unit: 09/24/16 Time of Arrival on Unit: 21:05 Mode of Transport: Wheelchair - Complaint OB-Reason for Admission/Chief Complaint: Possible Onset of Labor Medical History - Information : 3 Para: 2 Term: 0 : 2 Abortions: Spontaneous or Elective: 0 Number of Living Children: 2 - Gestational Age Expected Date of Delivery: 10/06/16 Gestational Age by BRIAN (wks/days): 38 Weeks and 2 Days Review of Systems - Review of Systems Constitutional: No problems Breast: No problems ENT: No problems Cardiovascular: No problems Respiratory: No problems Gastrointestinal: No problems Genitourinary: No problems Musculoskeletal: No problems Neurological: No problems Skin: No problems Vital Signs - Temperature Temperature: 97.0 F Temperature Source: Tympanic - Pulse Right Pulse Rate: 112 Pulse Assessment Method: Automatic Cuff - Respirations Respiratory Rate: 18 Oxygen Delivery Method: Room Air - Blood Pressure Right Arm Blood Pressure: 136/87 Blood Pressure Mean: 103 Blood Pressure Source: Automatic Cuff Medical Screen Scoring (Pre) - Cervical Exam Dilation: 4-7 cm = 2 Effacement: More than 50% = 2 Membranes: Intact - Uterine Contractions Frequency: > or = 36 weeks =2 Duration: > 40 seconds = 2 Intensity: Contraction palpated strong = 1 - Maternal Vital Signs Maternal Temperature: N/A Maternal Blood Pressure: Diastolic > 89 = 1 Signs of Preeclampsia: N/A Maternal Respirations: N/A - Maternal Trauma Maternal Trauma: N/A - Assessment Baseline FHR: 140 Heart Rate - NICHD Category: Category I (Normal) = 0 NST: Reactive Position: N/A Station: N/A - Total Score Total Score (Pre): 10 Physician Notification (Pre) - Physician Notified Physician Notified Date: 09/24/16 Physician Notified Time: 22:20 Physician/Practitioner Notifed:: Dr. Mcintyre Spoke With: Dr. Beebe New Order Received: Yes - Notification Comment Comment: admit for labor Disposition - Disposition OB Disposition: Admit I agree with the RN Medical Screening Exam: Yes Risk & Benefit of care provided described in d/c instruction: Yes Diagnosis: ENCOUNTER FOR FULL-TERM UNCOMPLICATED DELIVERY
[2016-09-25] MEDS ORDERED: SIMETHICONE 80 MG CHEWABLE PO PRN (03:12)
[2016-09-25] MEDS ORDERED: diphenhydrAMINE 25 MG CAP PO PRN (03:12)
[2016-09-25] MEDS ORDERED: ACETAMINOPHEN TAB 325 MG TAB PO PRN (03:12)
[2016-09-25] MEDS ORDERED: BENZOCAINE/MENTHOL SPRAY 1 GM/SPRAY AEROSOL TOPICAL PRN (03:12)
[2016-09-25] MEDS ORDERED: ZOLPIDEM 5 MG TAB PO PRN (03:12)
[2016-09-25] MEDS ORDERED: LANOLIN CREAM 5 GM TUBE TOPICAL PRN (03:12)
[2016-09-25] MEDS ORDERED: WITCH HAZEL 1 EACH MED..PAD TOPICAL PRN (03:12)
[2016-09-25] MEDS ORDERED: diphenhydrAMINE 50 MG CAP PO PRN (03:12)
[2016-09-25] MEDS ORDERED: HYDROCORTISONE 2.5% RECTAL CREAM 30 GM TUBE RECTAL PRN (03:12)
[2016-09-25] MEDS ORDERED: diphenhydrAMINE 50 MG/ML 1 ML VIAL IVP PRN ×2 (03:12)
[2016-09-25] MEDS ORDERED: OXYTOCIN 20 UNITS/1000 ML NS 1,000 ML IV SCH (03:15)
--- NOTE | 2016-09-25 03:15 | P.PROBDLV ---
Vaginal Delivery Note - . Vaginal Delivery Note: 26-year-old presented at 38 weeks and 2 days and labor. Her cervix was 7 cm dilated, 80 percent effaced, and -2 station. She is licha every 2-4 minutes. heart tones 140-145 with moderate variability and reactive. She got an epidural and was comfortable. Amniotomy was performed at 2322 and clear fluid noted. Her cervix was completely dilated at 1:51 AM, she pushed and delivered a viable male over intact perineum under epidural anesthesia at 1:57 AM. Head delivered OA, anterior shoulder which was the right shoulder delivered gentle downward traction followed by posterior shoulder and rest of body. Nose and mouth bulb suctioned, cord clamped and cut , infant placed on mother's abdomen. Apgars 8, 9, weight 7 lbs. 6 oz. Placenta delivered spontaneously, intact with three-vessel cord at 2:01 AM. Vagina, cervix, and perineum were inspected. No lacerations noted. Estimated blood loss 150 mL. Mother and baby in stable condition.
[2016-09-25] MEDS: SENNOSIDES-DOCUSATE SODIUM 1 EACH TAB PO SCH ×2 (08:00→21:22)
[2016-09-25] MEDS: IBUPROFEN 600 MG TAB PO PRN ×2 (14:32→22:15)
--- NOTE | 2016-09-26 06:36 | P.PNOBGVD ---
Subjective - Subjective Patient reports: Reports appetite normal, Reports voiding normally, Reports pain well controlled, Reports ambulating normally : doing well Objective - Latest Vital Signs Latest vital signs: Vital Signs Temp Pulse Resp BP 09/26/16 00:00 98.1 F 90 15 127/77 09/25/16 16:00 97.5 F L 88 16 126/73 09/25/16 12:00 97.8 F 78 16 119/75 Intake and Output 09/25/16 09/25/16 09/26/16 14:59 22:59 06:59 Output Total 1 Balance -1 Output: Urine 1 Other: # Voids 1 1 - Exam Lungs: bilateral: normal Chest: Normal S1, Normal S2 Extremities: Present: normal Abdomen: Present: normal appearance, soft Uterus: Present: normal, firm Assessment and Plan (1) Normal labor Narrative/Plan: day #1. Patient is resting without complaints and wishes to go home. Vital signs are stable and she is afebrile. Uterus is firm nontender and she is having normal lochia. My impression is a normal course. Plan is to continue routine care discharge home later today. Current Visit: Yes Status: Acute Code(s): O80 - ENCOUNTER FOR FULL-TERM UNCOMPLICATED DELIVERY; Z37.9 - OUTCOME OF DELIVERY, UNSPECIFIED SNOMED Code(s ): 90153585
--- NOTE | 2016-09-26 06:40 | P.DS ---
Providers Date of admission: 09/24/16 22:27 Expected date of discharge: 09/26/16 Attending physician: Madelin Mcintyre Primary care physician: Madelin Mcintyre - Discharge Diagnosis(es) (1) Normal labor Current Visit: Yes Status: Acute Hospital Course: Please see dictated H&P and delivery note per Dr. Mcintyre on this patient. Brief summary this is a pleasant 26-year-old 3 para 2 female 38-3/7 weeks gestation who is admitted to labor and delivery in active labor. Patient quickly goes on to have a vaginal delivery viable male . day # 1 patient's without complaints and wishes to go home. Patient's felt to be stable for discharge home follow up with Dr. Mcintyre and 6 weeks. Procedures: Normal spontaneous vaginal delivery. Patient Condition at Discharge: Good Plan - Discharge Summary New Discharge Prescriptions: New Ibuprofen [Motrin] 600 mg PO Q6HR PRN #40 tab PRN Reason: Mild Pain Or Fever >= 100.5 No Action Tyx-Ibpf-Mbisc Acid [-U Capsule] 1 each PO HS Discharge Medication List Waf-Qkdx-Ksykn Acid [-U Capsule] 1 each PO HS 08/01/13 [History ] Ibuprofen [Motrin] 600 mg PO Q6HR PRN #40 tab 09/26/16 [Rx] Follow up Appointment(s)/Referral(s): Madelin Mcintyre DO [Primary Care Provider] - 11/06/16 10:45 am Patient Instructions/Handouts: Vaginal Delivery (DC) Activity/Diet/Wound Care/Special Instructions: No intercourse or anything per vagina for 6 weeks. Please call if any fever, chills, excessive vaginal bleeding, and/or abdominal pain. Discharge Disposition: HOME SELF-CARE
[2016-09-26 08:20] VITALS: BP 120/70; PULSE 76; RESP 16; TEMP 97.6
== END 2016-09-26 10:25 | disposition home or self-care (01) | DRG 775 ==
LOC: FBPOP 21:05 → 4FBP 22:27
PROVIDERS: ADMIT Obstetrics & Gynecology; ATTEND Obstetrics & Gynecology
PROC: 10E0XZZ Delivery of Products of Conception, External Approach (ICD-10-PCS; principal; 2016-09-25)
PROC: 00HU33Z Insertion of Infusion Device into Spinal Canal, Percutaneous Approach (ICD-10-PCS; 2016-09-25)
PROC: 3E0R3CZ (ICD-10-PCS; 2016-09-25)
DX: O99.62 Diseases of the digestive system complicating childbirth (principal); O99.344 Other mental disorders complicating childbirth; F41.9 Anxiety disorder, unspecified; F90.9 Attention-deficit hyperactivity disorder, unspecified type; K21.9 Gastro-esophageal reflux disease without esophagitis; Z37.0 Single live birth; Z3A.38 38 weeks gestation of pregnancy
CPT/HCPCS: 59025; 85025; 88307; 99213

== ENCOUNTER 2016-12-25 06:42 | Day surgery (SDC) | payer OTHER ==
[2016-12-24 08:15] VITALS: BMI 27.8
--- NOTE | 2016-12-24 14:28 | P.HPOB ---
History of Present Illness H&P Date: 12/24/16 Chief Complaint: family planning 26 year old presents for laparoscopic tubal ligation. Review of Systems All systems: negative Constitutional: Denies chills, Denies fever Eyes: denies blurred vision, denies pain Ears, nose, mouth and throat: Denies headache, Denies sore throat Cardiovascular: Denies chest pain, Denies shortness of breath Respiratory: Denies cough Gastrointestinal: Denies abdominal pain, Denies diarrhea, Denies nausea, Denies vomiting Genitourinary: Denies dysuria, Denies hematuria Musculoskeletal: Denies myalgias Integumentary: Denies pruritus, Denies rash Neurological: Denies numbness, Denies weakness Psychiatric: Denies anxiety, Denies depression Endocrine: Denies fatigue, Denies weight change Past Medical History Past Medical History: GERD/Reflux Additional Past Medical History / Comment(s): Obstetrical history: With patient' s first she spontaneously delivered at 26 weeks. Her second she had a cerclage and progesterone injections. She delivered at 32 weeks after her water broke and the cerclage had to be removed. With her third she had a cerclage and progesterone injections. the cerclage was removed at 36 weeks and she delivered full term. History of Any Multi-Drug Resistant Organisms: None Reported Additional Past Surgical History / Comment(s): Cerclage 2 Past Anesthesia/Blood Transfusion Reactions: Postoperative Nausea & Vomiting ( PONV) Past Psychological History: No Psychological Hx Reported Smoking Status: Never smoker Past Alcohol Use History: None Reported Past Drug Use History: None Reported - Past Family History Mother Family Medical History: No Reported History Medications and Allergies Home Medications Medication Instructions Recorded Confirmed Type Aviane 1 tab PO HS 12/24/16 12/24/16 History Allergies Allergy/AdvReac Type Severity Reaction Status Date / Time No Known Allergies Allergy Verified 12/24/16 08:09 Exam Osteopathic Statement: *. No significant issues noted on an osteopathic structural exam other than those noted in the History and Physical/Consult. - Vital Signs Vital signs: Intake and Output 12/23/16 12/24/16 12/24/16 22:59 06:59 14:59 Other: Weight 72.575 kg Patient Weight 12/25/16 06:59 Weight 72.575 kg Heart: RRR Lungs: CTAB ABdomen: soft, nontender Extremeties: neg lisette's Assessment and Plan (1) Family planning Status: Acute Code(s): Z30.09 - ENCOUNTER FOR OTH GENERAL CNSL AND ADVICE ON CONTRACEPTION SNOMED Code(s): 82670126 Plan: 1. Laparoscopic tubal ligation
[~2016-12-25 06:42] MED LIST changes: +DEXAMETHASONE SOD PHOSPHATE 10 MG/ML 1 ML VIAL IV ONE; +LIDOCAINE 1% 20 ML VIAL (10MG/ML) FOR IV START INTRADERMA PRN; +MIDAZOLAM 2 MG/2 ML VIAL IV PRN; +ONDANSETRON 4 MG/2 ML VIAL IVP ONE; +SCOPOLAMINE 1.5MG/72HR PATCH TRANSDERM ONE
[2016-12-25] MEDS: LACTATED RINGERS 1,000 ML IV SCH ×2 (07:32→08:26)
[2016-12-25] MEDS ORDERED: LIDOCAINE 1% 20 ML VIAL (10MG/ML) FOR IV START INTRADERMA ONE (07:32)
[2016-12-25] MEDS ORDERED: GLYCOPYRROLATE 0.2 MG/ML 2 ML VIAL ONE (08:29)
[2016-12-25] MEDS ORDERED: LIDOCAINE 1% INJ 10MG/ML (20 ML MDV) ONE (08:29)
[2016-12-25] MEDS ORDERED: PROPOFOL 10 MG/ML 20 ML VIAL IV ONE (08:29)
[2016-12-25] MEDS ORDERED: SUCCINYLCHOLINE CHLORIDE 100 MG/5 ML SYR IV ONE (08:29)
[2016-12-25] MEDS ORDERED: ROCURONIUM BROMIDE 10 MG/ML 10 ML VIAL IV ONE (08:29)
[2016-12-25] MEDS ORDERED: fentaNYL (PF) 50 MCG/ML 2 ML AMP ONE (08:29)
[2016-12-25] MEDS ORDERED: NEOSTIGMINE 1 MG/ML 10 ML VIAL ONE (08:29)
[2016-12-25] MEDS ORDERED: MIDAZOLAM 2 MG/2 ML VIAL ONE (08:29)
[2016-12-25] MEDS ORDERED: BUPIVACAINE (PF) 0.25% 30 ML VIAL SQ ONE (08:29)
--- NOTE | 2016-12-25 09:08 | P.OP ---
Date of Procedure: 12/25/16 Preoperative Diagnosis: 1. Family planning Postoperative Diagnosis: 1. Family planning Procedure(s) Performed: Laparoscopic tubal ligation Anesthesia: QUITA Surgeon: Madelin Mcintyre Estimated Blood Loss (ml): 3 IV fluids (ml): 200 Urine output (ml): 150 Pathology: none sent Condition: stable Disposition: PACU Operative Findings: Normal uterus, tubes, ovaries Description of Procedure: Patient was taken to the operating room where general anesthesia was obtained without difficulty. She was prepped and draped in normal sterile fashion in the dorsal lithotomy position, legs placed in the Jc stirrups. Bladder drained of all urine. Olney speculum placed in the vagina and the anterior lip the cervix was grasped with single-tooth tenaculum. The uterus is sounded to 7 cm and the kroner manipulator was placed. Attention was then turned to the abdomen and gloves were changed. A 10 mm infraumbilical incision was made the scalpel and 10 mm optical trocar was placed under direct visualization. A 5 mm suprapubic Incision was made and a 5 mm optical trocar was placed under direct visualization. Survey of the pelvis revealed normal uterus tubes and ovaries. The left fallopian tube was grasped with a Kleppinger and fulgurated 2 -3 cm on this side in the ampullar portion. The right fallopian tube was grasped with a Kleppinger and fulgurated 2-3 cm in the ampullar portion. All instruments were then removed from the abdomen and vagina. The 10 mm infraumbilical incision was closed with 0 Vicryl and the fascial layer and then 4-0 Vicryl in a subcuticular fashion. The 5 mm incision was closed with 4-0 Vicryl in a subcuticular fashion. Patient tolerated procedure well, sponge and instrument counts correct 2 and she was taken to recovery room in stable condition.
[2016-12-25] MEDS ORDERED: KETOROLAC 30 MG/ML 1 ML VIAL IVP ONE (09:22)
[2016-12-25] MEDS: HYDROmorphone 1 MG/ML 1 ML SYRINGE IVP PRN ×2 (09:30→09:36)
[2016-12-25 09:32] VITALS: TEMP 97.5
[2016-12-25 09:50] VITALS: RESP 16
[2016-12-25 11:06] VITALS: BP 101/50; PULSE 59
== END 2016-12-25 11:42 | disposition home or self-care (01) ==
LOC: OR 06:42
PROVIDERS: ATTEND Obstetrics & Gynecology
DX: Z30.2 Encounter for sterilization (principal); K21.9 Gastro-esophageal reflux disease without esophagitis; Z79.3 Long term (current) use of hormonal contraceptives
CPT/HCPCS: 84703; 58670; J2250; J1100; J2710; J2405; J2001; J3010; J1885; J1170; J0330; J2704

== ENCOUNTER → 2021-03-27 | Outpatient (CLI) | payer OTHER ==
--- NOTE | 2021-03-27 12:19 | XR ---
EXAMINATION TYPE: XR knee complete LT DATE OF EXAM: 03/27/2021 COMPARISON: None HISTORY: 30-year-old female M2 5.562, left knee pain TECHNIQUE: 3 views FINDINGS: Fragmentation of the tibial tuberosity suggests sequela of remote injury or ossicle disease. Small kn ee joint effusion may be present. No acute fracture, subluxation, dislocation. IMPRESSION: Corticated bone fragment measuring 1.2 cm at the tibial tuberosity could represent sequela of remote avulsion injury or sequela of prior Nithin Schlatter's disease. Clinically correlate. There may be a small underlying joint effusion which is nonspecific. Otherwise, no acute osseous abnormality seen.
== END | disposition home or self-care (01) ==
LOC: RADXRMAIN 11:55
PROVIDERS: ATTEND Family Medicine
DX: M25.562 Pain in left knee (principal)

== ENCOUNTER 2021-11-12 19:59 | Emergency (ER) | payer OTHER ==
[2021-11-12 20:46] VITALS: BP 137/93; PULSE 89; RESP 20; TEMP 98.2
--- NOTE | 2021-11-12 21:14 | XR ---
EXAMINATION TYPE: XR knee complete LT DATE OF EXAM: 11/12/2021 COMPARISON: 03/27/2021 HISTORY: Knee pain TECHNIQUE: 3 views FINDINGS: There is no evidence of fracture nor dislocation. There is fragmentation at the tibial tube rcle related to old osteochondrosis. No sign of joint effusion. IMPRESSION: No acute abnormality of the left knee. 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
--- NOTE | 2021-11-12 21:43 | ED ---
General Adult HPI - General Chief complaint: Extremity Injury, Lower Stated complaint: Knee pain Time Seen by Provider: 11/12/21 21:00 Source: patient Mode of arrival: ambulatory Limitations: no limitations - History of Present Illness Initial comments: 31-year-old female presents emergency department complaining of left knee pain. States she was laying in bed a week ago. [place] like her knee popped out of place and then went back in. She has had medial knee pain since the incident happened. She has been ambulatory on it. She went to an urgent care that didn't x-ray. They told her that her knee was broken and therefore she attempted to [facility] States that she was turned away because they did not take her insurance. She was told to come into the emergency room and be evaluated so that she would qualify for a referral. Patient has been taking Motrin Tylenol. Denies any numbness or tingling into her foot. No foot, ankle or hip pain. No other alleviating, precipitating factors - Related Data Home Medications Medication Instructions Recorded Confirmed Aviane 1 tab PO HS 12/24/16 12/25/16 Previous Rx's Medication Instructions Recorded Acetaminophen-Codeine 300-30mg 2 tab PO Q6H PRN #30 tablet 12/25/16 [Tylenol #3] Ibuprofen [Motrin] 600 mg PO Q6HR PRN #30 tab 12/25/16 Allergies Allergy/AdvReac Type Severity Reaction Status Date / Time No Known Allergies Allergy Verified 11/12/21 20:46 Review of Systems ROS Statement: Those systems with pertinent positive or pertinent negative responses have been documented in the HPI. ROS Other: All systems not noted in ROS Statement are negative. Past Medical History Past Medical History: GERD/Reflux Additional Past Medical History / Comment(s): Obstetrical history: With patient's first she spontaneously delivered at 26 weeks. Her second she had a cerclage and progesterone injections. She delivered at 32 weeks after her water broke and the cerclage had to be removed. With this the cerclage was placed at 14 weeks and she has been getting jai injections weekly until 36 weeks. Cerclage was removed at 36 weeks and she was 3-4/70/-2. A+, abs neg, Rub Imm, RPR NR, Hep B neg, HIV NR. GBS neg. History of Any Multi-Drug Resistant Organisms: None Reported Additional Past Surgical History / Comment(s): Cerclage 2 Past Anesthesia/Blood Transfusion Reactions: Postoperative Nausea & Vomiting (PONV) Past Psychological History: ADD/ADHD, Anxiety Smoking Status: Never smoker Past Alcohol Use History: None Reported Past Drug Use History: None Reported - Past Family History Mother Family Medical History: No Reported History General Exam Limitations: no limitations General appearance: alert, in no apparent distress Extremities exam: Present: normal inspection, full ROM, tenderness (medial aspect left knee. no swelling or erythema. no joint swelling. ), normal capillary refill. Absent: pedal edema, joint swelling, calf tenderness Neurological exam: Present: alert, oriented X3, CN II-XII intact Psychiatric exam: Present: normal affect, normal mood Skin exam: Present: warm, dry, intact, normal color. Absent: rash Course Vital Signs 11/12/21 20:42 Temperature 98.2 F Pulse Rate 89 Respiratory 20 Rate Blood Pressure 137/93 O2 Sat by Pulse 98 Oximetry Medical Decision Making - Medical Decision Making Upon arrival patient was placed into room 29. X-ray is performed which demonstrates no acute abdominal to the left knee. 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 This was seen on an x-ray in March. I did discuss the diagnosis with the patient. Recommended rest, ice and elevate. Ambulate as tolerated with crutches. Alternates taking Motrin and Tylenol. I will give her follow up information for the orthopedic office. Instructed if she has continued pain she may need further imaging. Patient was agreeable with this and discharged home in stable condition Disposition Clinical Impression: Knee pain Disposition: HOME SELF-CARE Condition: Stable Instructions (If sedation given, give patient instructions): Knee Pain (ED) Additional Instructions: Rest, ice and elevate the extremity. Wear the [place] bandage for compression. Call the orthopedic office in the morning to make an appointment. Return for any new or worsening symptoms Is patient prescribed a controlled substance at d/c from ED?: No Referrals: Red Mehta [STAFF PHYSICIAN] - 1-2 days Clem Fournier DO [Doctor of Osteopathic Medicine] - 1-2 days Time of Disposition: 21:43
== END 2021-11-12 21:51 | disposition home or self-care (01) ==
LOC: EC 19:59
DX: M25.562 Pain in left knee (principal); K21.9 Gastro-esophageal reflux disease without esophagitis; F41.9 Anxiety disorder, unspecified; Z79.899 Other long term (current) drug therapy
CPT/HCPCS: 99283

== ENCOUNTER → 2021-12-21 | Outpatient (CLI) | payer OTHER ==
--- NOTE | 2021-12-22 01:17 | MR ---
EXAMINATION TYPE: MR knee LT wo con DATE OF EXAM: 12/21/2021 COMPARISON: None HISTORY: Left knee pain. Multiplanar multiecho imaging of the left knee performed without contrast. The anterior and posterior cruciate ligaments are intact. There is a mild knee joint effusion. Patell a is intact. The patellar tendon is intact. The collateral ligaments are intact. There is minimal inc reased signal within the posterior horn of the medial meniscus. There is horizontal tear of the poste rior horn of the lateral meniscus. No evidence of a fracture. No bony destructive process. IMPRESSION: Knee joint effusion. No evidence of ligamentous tear. Intrasubstance tear of the posterior horn of th e medial meniscus. Horizontal tear in the posterior horn of the lateral meniscus.
== END | disposition home or self-care (01) ==
LOC: RADMRIMAIN 10:45
PROVIDERS: ATTEND Family Medicine
DX: M23.252 Derangement of posterior horn of lateral meniscus due to old tear or injury, left knee (principal); M25.462 Effusion, left knee

== ENCOUNTER → 2022-01-21 | Outpatient (CLI) | payer OTHER ==
[2022-01-21 18:45] LABS: Basophils # (A) 0.06 X 10*3/uL (0.00-0.10); Eosinophils # (A) 0.15 X 10*3/uL (0.04-0.35); Eosinophils % (A) 2.4 %; HCT 45.7 % (37.2-46.3); Immature Grans, Automated 0.3 %; Lymphocytes # (A) 1.64 X 10*3/uL (0.90-5.00); Lymphocytes % (A) 26.5 %; MCH 27.2 pg (27.0-32.0); MCHC 30.6 g/dL (32.0-37.0); MCV 88.7 fL (80.0-97.0); Mean Platelet Volume 11.6 fL (9.5-12.2); Monocytes # (A) 0.35 X 10*3/uL (0.20-1.00); Monocytes % (A) 5.7 %; NRBC Per 100 WBC 0 /100 WBCS (0.0-0.0); Neutrophils # (A) 3.97 X 10*3/uL (1.80-7.70); Neutrophils % (A) 64.1 %; Platelet Count 213 X 10*3/uL (140-440); RBC 5.15 X 10*6/uL (4.10-5.20); RDW 12.6 % (11.5-14.5); WBC 6.19 X 10*3/uL (4.50-10.00)
[2022-01-21 19:17] LABS: Anion Gap 9.2 mmol/L (10.00-18.00); Carbon Dioxide 21.8 mmol/L (20.0-27.5); Potassium 4.5 mmol/L (3.5-5.5)
== END | disposition home or self-care (01) ==
LOC: LABPAT 11:08
PROVIDERS: ATTEND Orthopaedic Surgery
DX: Z01.812 Encounter for preprocedural laboratory examination (principal); M23.92 Unspecified internal derangement of left knee
CPT/HCPCS: 80051; 85025

== ENCOUNTER 2022-02-12 12:12 | Day surgery (SDC) | payer OTHER ==
[2022-02-07 13:04] VITALS: BMI 33.6
--- NOTE | 2022-02-11 11:50 | HP ---
HISTORY AND PHYSICAL DATE OF SURGERY: 02/12/2022. HISTORY OF PRESENT ILLNESS: Sarah Anders is a 31-year-old patient seen with progressive left knee pain. We discussed options for treatment. She elected to proceed with left knee arthroscopy. Consent regarding the procedure was obtained. PAST MEDICAL HISTORY: Noncontributory. PAST SURGICAL HISTORY: Tubal ligation. DAILY MEDICATIONS: Tylenol. ALLERGIES: None. SOCIAL HISTORY: She denies current tobacco use. PHYSICAL EVALUATION OF THE LEFT KNEE: Range of motion is 0-130. Mild effusion. Tenderness along the medial and lateral joint line. Positive medial Madelin's. Positive lateral Madelin's. Ligaments stable. Hip rotation without pain. Distal neurovascular exam intact. RADIOGRAPHS: Left knee radiographs reveal some osteophytes about the patella. MRI of the left knee revealed lateral meniscal tear and effusion. IMPRESSION: 1. Internal derangement of left knee with lateral meniscal tear. 2. Left knee patellar chondromalacia. PLAN: Left knee arthroscopy with partial lateral meniscectomy and debridement. MMODL / IJN: [id number] /
[~2022-02-12 12:12] MED LIST changes: -DEXAMETHASONE SOD PHOSPHATE 10 MG/ML 1 ML VIAL IV ONE; +DEXAMETHASONE SOD PHOSPHATE 4 MG/ML 1 ML VIAL IV ONE; +HYDROmorphone 0.5 MG/0.5 ML SYRINGE IVP PRN; +LACTATED RINGERS 1,000 ML IV SCH; -LIDOCAINE 1% 20 ML VIAL (10MG/ML) FOR IV START INTRADERMA PRN; -MIDAZOLAM 2 MG/2 ML VIAL IV PRN; -Pre Op ABX Message 1 EACH MISC MISCELLANE ONE; -SCOPOLAMINE 1.5MG/72HR PATCH TRANSDERM ONE
[2022-02-12] MEDS ORDERED: BUPIVACAIN-EPI 0.25%-1:200,000 30 ML VIAL INTRAARTIC ONE ×2 (14:02→15:20)
[2022-02-12] MEDS ORDERED: HYDROmorphone (PF) 1 MG/ML ONE (14:41)
[2022-02-12] MEDS ORDERED: MIDAZOLAM 2 MG/2 ML VIAL ONE (14:41)
[2022-02-12] MEDS ORDERED: PROPOFOL 10 MG/ML 20 ML VIAL IV ONE (14:41)
[2022-02-12] MEDS ORDERED: KETOROLAC 15 MG/ML 1 ML VIAL ONE (14:41)
[2022-02-12] MEDS ORDERED: fentaNYL (PF) 50 MCG/ML 2 ML AMP ONE (14:41)
[2022-02-12] MEDS ORDERED: LIDOCAINE 2% INJ 20 MG/ML (2 ML VIAL) ONE (14:41)
--- NOTE | 2022-02-12 15:37 | P.OP ---
Date of Procedure: 02/12/22 Preoperative Diagnosis: Internal derangement left knee Postoperative Diagnosis: 1. Tear medial lateral meniscus left knee 2. Reactive synovitis medial, lateral and suprapatellar compartments left knee Procedure(s) Performed: 1. Arthroscopic partial medial and lateral meniscectomy left knee 2. Arthroscopic partial synovectomy medial, lateral and suprapatellar compartments left knee Anesthesia: JOSHUAA, local Surgeon: Moncho Parker Estimated Blood Loss (ml): 7 Pathology: none sent Condition: stable Disposition: PACU Indications for Procedure: 31-year-old patient seen with progressive left knee pain. After having treatment options discussed, she elected to proceed with arthroscopy. Operative Findings: See description of procedure Description of Procedure: Patient was taken to the operative suite. Patient underwent a general anesthetic by the department of anesthesia. Patient was given preoperative antibiotics. The left lower extremity was placed in a well-padded arthroscopic leg watts. The left leg was prepped and draped in the normal sterile orthopedic fashion. A lateral parapatellar and suprapatellar incision was made. Trochars were inserted. Arthroscopy was initiated. Suprapatellar pouch reve aled diffuse thick reactive synovitis. The patellofemoral joint appeared to articulate congruently. There was grade 2 chondromalacia the patella without significant osteochondral tears being present. The scope was guided into the medial gutter. Loose bodies The scope was then guided into the medial compartment. A medial parapatellar incision was made. Trocar inserted followed by probe. There was a radial tear posterior horn medial meniscus. There was thick reactive synovitis anteriorly. There was no significant chondromalacia present. I performed a partial medial meniscectomy. I performed a partial synovectomy. The residual meniscus was stable. It was good decompression of the synovitis. Scope and probe were then guided into the intercondylar notch. Cruciates were identified, probed and found to be stable. The scope and probe were then guided into lateral compartment. There was a complex tear involving the mid body and posterior horn of the lateral meniscus. There was mild grade 1 chondromalacia lateral compartment. There was some thick reactive synovitis anteriorly. I performed a partial lateral meniscectomy getting down to stable meniscal tissue. I performed a partial synovectomy decompressing the reactive synovitis. The shaver was removed. The residual meniscus was stable. There was good decompression of synovitis. The scope was in guided back into the suprapatellar compartment. I introduced a motorized shaver into the suprapatellar compartment. I debrided some piecemeal fragments of meniscus I encountered. I performed a partial synovectomy. The shaver was removed. There was good decompression of synovitis. I took one more look around the entire knee, no residual debris. Instruments were now removed from the joint. The joint was infiltrated with .25% Marcaine. Steri-Strips were applied to the portal sites. Sterile dressings were applied. The patient was placed into a ADEEL hose. No tourniquet was utilized. The patient was awakened, transferred to a bed and taken to recovery stable satisfactory condition.
[2022-02-12 15:39] VITALS: TEMP 96.8
[2022-02-12 16:26] VITALS: RESP 20
[2022-02-12] MEDS ORDERED: HYDROcodone/APAP 5-325MG 1 EACH TAB ONE (16:34)
[2022-02-12] MEDS ORDERED: HYDROcodone/APAP 5-325MG 1 EACH TAB PO ONE (16:35)
[2022-02-12 17:15] VITALS: BP 117/77; PULSE 70
== END 2022-02-12 17:16 | disposition home or self-care (01) ==
LOC: OR 12:12
PROVIDERS: ATTEND Orthopaedic Surgery
DX: S83.272A Complex tear of lateral meniscus, current injury, left knee, initial encounter (principal); S83.282A Other tear of lateral meniscus, current injury, left knee, initial encounter; S83.242A Other tear of medial meniscus, current injury, left knee, initial encounter; M65.862 Other synovitis and tenosynovitis, left lower leg; M94.262 Chondromalacia, left knee; Z98.51 Tubal ligation status; Z79.1 Long term (current) use of non-steroidal anti-inflammatories (NSAID); F98.8 Other specified behavioral and emotional disorders with onset usually occurring in childhood and adolescence
CPT/HCPCS: 29880; 81025; J2250; J1100; J0690; J2405; J3010; J1170 ×2; J1885; J2704; J2001

== ENCOUNTER → 2023-01-06 | Outpatient (CLI) | payer OTHER ==
--- NOTE | 2023-01-09 17:20 | MR ---
EXAMINATION TYPE: MR knee LT wo con DATE OF EXAM: 01/06/2023 COMPARISON: 12/21/2021 HISTORY: Left knee pain, Prior scope Lt knee TECHNIQUE: Multiplanar, multisequence imaging of the left knee is performed without IV contrast. FINDINGS: There is no bone contusion or fracture. There is minimal joint fluid which may be physiologic. There is no ligamentous injury involving the cruciate ligaments are collateral ligaments There is no meniscal tear. The quadriceps tendon and patellar tendons are intact. The articular cartilages are normal is no significant osteoarthritic change. IMPRESSION: No significant abnormality seen.
== END | disposition home or self-care (01) ==
LOC: RADMRIMAIN 20:15
PROVIDERS: ATTEND Orthopaedic Surgery
DX: M25.562 Pain in left knee (principal)

== ENCOUNTER 2023-01-08 15:37 | Emergency (ER) | payer OTHER ==
[2023-01-08] MEDS ORDERED: ACETAMINOPHEN TAB 325 MG TAB PO STA (16:02)
--- NOTE | 2023-01-08 16:27 | XR ---
EXAMINATION TYPE: XR knee complete LT DATE OF EXAM: 01/08/2023 CLINICAL HISTORY: 11/12/2021 TECHNIQUE: Three views of the left knee are obtained. COMPARISON: None. FINDINGS: There is no acute fracture/dislocation. The tri-compartment joint spaces appear within no rmal limits. The overlying soft tissue appears unremarkable. IMPRESSION: There is no acute fracture or dislocation ICD 10 NO FRACTURE, INITIAL EVALUATION
--- NOTE | 2023-01-08 16:51 | ED ---
Lower Extremity Injury HPI - General Chief Complaint: Extremity Injury, Lower Stated Complaint: Fall, L knee Pain Time Seen by Provider: 01/08/23 15:52 Source: patient, RN notes reviewed Mode of arrival: ambulatory Limitations: no limitations - History of Present Illness Initial Comments: Patient is a 32-year-old female presented ER with a chief complaint of left knee injury. Patient states she tripped and fell landing on her left knee today. Patient endorses associated ecchymosis and mild swelling to the joint. Patient denies any other injuries. Patient denies any paresthesias. Patient reports that she has had meniscus surgeries and has broken this knee prior. She states that she has an abnormality on x-ray that has been there for a while. Patient has no other complaints at this time. - Related Data Home Medications Medication Instructions Recorded Confirmed Acetaminophen Tab [Tylenol Tab] 500 - 1,000 mg PO Q4-6H PRN 03/28/22 04/01/22 Allergies Allergy/AdvReac Type Severity Reaction Status Date / Time No Known Allergies Allergy Verified 01/08/23 15:40 Review of Systems ROS Statement: Those systems with pertinent positive or pertinent negative responses have been documented in the HPI. ROS Other: All systems not noted in ROS Statement are negative. Past Medical History Past Medical History: GERD/Reflux Additional Past Medical History / Comment(s): left knee pain History of Any Multi-Drug Resistant Organisms: None Reported Past Surgical History: Tubal Ligation Additional Past Surgical History / Comment(s): Cerclage 2 Past Anesthesia/Blood Transfusion Reactions: Postoperative Nausea & Vomiting (PONV) Additional Past Anesthesia/Blood Transfusion Reaction / Comment(s): no hx blood transfusion Past Psychological History: ADD/ADHD, Anxiety Smoking Status: Never smoker Past Alcohol Use History: None Reported Past Drug Use History: None Reported - Past Family History Mother Family Medical History: No Reported History General Exam Limitations: no limitations General appearance: alert, in no apparent distress Respiratory exam: Present: normal lung sounds bilaterally. Absent: respiratory distress, wheezes, rales, rhonchi, stridor Cardiovascular Exam: Present: regular rate, normal rhythm, normal heart sounds. Absent: systolic murmur, diastolic murmur, rubs, gallop, clicks Extremities exam: Present: other (Left knee ecchymosis and edema noted along the joint line. 2+ dorsalis pedis pulse. Full flexion and extension of knee) Neurological exam: Present: alert, oriented X3, CN II-XII intact Psychiatric exam: Present: normal affect, normal mood Skin exam: Present: warm, dry, intact, normal color. Absent: rash Course Vital Signs 01/08/23 15:38 Temperature 98.1 F Pulse Rate 80 Respiratory 18 Rate Blood Pressure 116/81 O2 Sat by Pulse 99 Oximetry Medical Decision Making - Medical Decision Making Was pt. sent in by a medical professional or institution (, [facility], [facility], urgent care, hospital, or [facility]...) When possible be specific @ -No Did you speak to anyone other than the patient for history (EMS, parent, family, police, friend...)? What history was obtained from this source @ -No Did you review nursing and triage notes (agree or disagree)? Why? @ -I reviewed and agree with nursing and triage notes Were old charts reviewed (outside hosp., previous admission, EMS record, old EKG, old radiological studies, urgent care reports/EKG's, [facility] records)? Report findings @ -No old charts were reviewed Differential Diagnosis (chest pain, altered mental status, abdominal pain women, abdominal pain men, vaginal bleeding, weakness, fever, dyspnea, syncope, headache, dizziness, GI bleed, back pain, seizure, CVA, palpatations, mental health, musculoskeletal)? @ -Differential Musculoskeletal: Muscular strain, contusion, ligament sprain, fracture, arthritis, septic arthritis, bursitis, cellulitis, muscle spasm, nerve compression, DVT, arterial occlusion, herpes zoster, electrolyte abnormality, tumor.... This is not meant to be in all inclusive list EKG interpreted by me (3pts min.). @ -None X-rays interpreted by me (1pt min.). @ -X-ray of left knee shows no acute fractures or dislocations. CT interpreted by me (1pt min.). @ -None done U/S interpreted by me (1pt. min.). @ -None done What testing was considered but not performed or refused? (CT, X-rays, U/S, labs)? Why? @ -None What meds were considered but not given or refused? Why? @ -None Did you discuss the management of the patient with other professionals (professionals i.e. , [facility], [facility], lab, RT, psych nurse, social media content specialist, sheet metal shop helper, teacher, chief nursing officer, egg caser)? Give summary @ -No Was smoking cessation discussed for >3mins.? @ -No Was critical care preformed (if so, how long)? @ -No Were there social determinants of health that impacted care today? How? (Homelessness, low income, unemployed, alcoholism, drug addiction, transportation, low edu. Level, literacy, decrease access to med. care, residential, rehab)? @ -No Was there de-escalation of care discussed even if they declined (Discuss DNR or withdrawal of care, Hospice)? DNR status @ -No What co-morbidities impacted this encounter? (DM, HTN, Smoking, COPD, CAD, Cancer, CVA, ARF, Chemo, Hep., AIDS, mental health diagnosis, sleep apnea, morbid obesity)? @ -None Was patient admitted / discharged? Hospital course, mention meds given and route, prescriptions, significant lab abnormalities, going to OR and other pertinent info. @ -Discharge. On examination, patient had ecchymosis and edema noted to left knee joint line. Patient had full range of motion and 2+ DP pulse. X-ray obtained of the left knee shows no acute fractures or dislocations. She received PO tylenol for pain control in the ER. Patient will be placed in a knee immobilizer and discharged. Patient states she has a follow-up appointment with orthopedics on January 16. I discussed with the patient to rest, ice, elevate, and use compression, and use OTC tylenol and Motrin for pain control. Patient expressed understanding and agreement with care plan. Undiagnosed new problem with uncertain prognosis? @ -No Drug Therapy requiring intensive monitoring for toxicity (Heparin, Nitro, Insulin, Cardizem)? @ -No Were any procedures done? @ -No Diagnosis/symptom? @ -Left knee contusion Acute, or Chronic, or Acute on Chronic? @ -Acute Uncomplicated (without systemic symptoms) or Complicated (systemic symptoms)? @ -Uncomplicated Side effects of treatment? @ -No Exacerbation, Progression, or Severe Exacerbation? @ -No Poses a threat to life or bodily function? How? (Chest pain, USA, MD, pneumonia, PE, COPD, DKA, ARF, appy, cholecystitis, CVA, Diverticulitis, Homicidal, Suicidal, threat to staff... and all critical care pts) @ -No - Radiology Data Radiology results: report reviewed, image reviewed Disposition Clinical Impression: Knee contusion Disposition: HOME SELF-CARE Condition: Stable Additional Instructions: Please return to the Emergency Department if symptoms worsen or any other concerns. Is patient prescribed a controlled substance at d/c from ED?: No Referrals: Ashley Langston MD [Primary Care Provider] - 1-2 days Time of Disposition: 16:51
[2023-01-08 17:54] VITALS: BP 121/76; PULSE 70; RESP 16; TEMP 97.9
== END 2023-01-08 17:48 | disposition home or self-care (01) ==
LOC: EC 15:37
DX: S80.02XA Contusion of left knee, initial encounter (principal); W01.0XXA Fall on same level from slipping, tripping and stumbling without subsequent striking against object, initial encounter
CPT/HCPCS: 99283

== ENCOUNTER 2023-01-11 | Emergency (ER) | payer OTHER ==
[2023-01-11 00:29] VITALS: TEMP 97.8
--- NOTE | 2023-01-11 01:28 | ED ---
General Adult HPI - General Chief complaint: Extremity Injury, Lower Stated complaint: Left knee pain Time Seen by Provider: 01/11/23 00:23 Source: patient Mode of arrival: ambulatory Limitations: no limitations - History of Present Illness Initial comments: 32-year-old female presenting to the ED with a chief complaint of left knee pain. Patient states that she has had ongoing pain of her left knee for a while. Patient states she fell injuring her left knee again. Had an MRI the following day. Report of that MRI shows no significant abnormalities. However, patient reports continued pain of the left knee. Patient follows with Dr. Parker of orthopedics and notes a follow up appointment next . Denied chest pain. No other complaints. - Related Data Home Medications Medication Instructions Recorded Confirmed Acetaminophen Tab [Tylenol Tab] 500 - 1,000 mg PO Q4-6H PRN 03/28/22 04/01/22 Allergies Allergy/AdvReac Type Severity Reaction Status Date / Time No Known Allergies Allergy Verified 01/11/23 00:06 Review of Systems ROS Statement: Those systems with pertinent positive or pertinent negative responses have been documented in the HPI. ROS Other: All systems not noted in ROS Statement are negative. Past Medical History Past Medical History: GERD/Reflux Additional Past Medical History / Comment(s): left knee pain History of Any Multi-Drug Resistant Organisms: None Reported Past Surgical History: Tubal Ligation Additional Past Surgical History / Comment(s): Cerclage 2 Past Anesthesia/Blood Transfusion Reactions: Postoperative Nausea & Vomiting (PONV) Additional Past Anesthesia/Blood Transfusion Reaction / Comment(s): no hx blood transfusion Past Psychological History: ADD/ADHD, Anxiety Smoking Status: Never smoker Past Alcohol Use History: None Reported Past Drug Use History: None Reported - Past Family History Mother Family Medical History: No Reported History General Exam Limitations: no limitations General appearance: alert, in no apparent distress ENT exam: Present: normal exam Neck exam: Present: normal inspection Respiratory exam: Present: normal lung sounds bilaterally Cardiovascular Exam: Present: regular rate, normal rhythm GI/Abdominal exam: Present: soft Extremities exam: Present: other (Strength and sensation equal and intact in bilateral lower extremity. DP/PT pulses 2+.) Neurological exam: Present: alert, oriented X3 Skin exam: Present: warm, dry Course Vital Signs 01/11/23 00:06 Temperature 97.8 F Pulse Rate 91 Respiratory 18 Rate Blood Pressure 112/82 O2 Sat by Pulse 98 Oximetry Medical Decision Making - Medical Decision Making Was pt. sent in by a medical professional or institution (, MARIA EUGENIA, EXCHANGE TELLER, urgent care, hospital, or senior living...) When possible be specific @ -No Did you speak to anyone other than the patient for history (EMS, parent, family, police, friend...)? What history was obtained from this source @ -No Did you review nursing and triage notes (agree or disagree)? Why? @ -I reviewed and agree with nursing and triage notes Were old charts reviewed (outside hosp., previous admission, EMS record, old EKG, old radiological studies, urgent care reports/EKG's, senior living records)? Report findings @ -Prior MRI reviewed. This showed no acute findings. Differential Diagnosis (chest pain, altered mental status, abdominal pain women, abdominal pain men, vaginal bleeding, weakness, fever, dyspnea, syncope, headache, dizziness, GI bleed, back pain, seizure, CVA, palpatations, mental health, musculoskeletal)? @ -Differential Musculoskeletal Muscular strain, contusion, ligament sprain, fracture, arthritis, septic arthritis, bursitis, cellulitis, muscle spasm, nerve compression, DVT, arterial occlusion, herpes zoster, electrolyte abnormality, tumor.... This is not meant to be in all inclusive list EKG interpreted by me (3pts min.). @ -As above X-rays interpreted by me (1pt min.). @ -None done CT interpreted by me (1pt min.). @ -None done U/S interpreted by me (1pt. min.). @ -None done What testing was considered but not performed or refused? (CT, X-rays, U/S, labs)? Why? @ -Testing was considered however patient reports that she injured her knee on . At that time had an x-ray that showed no acute findings. Patient also had an MRI the following day that showed no acute findings. What meds were considered but not given or refused? Why? @ -None Did you discuss the management of the patient with other professionals (professionals i.e. MARIA EUGENIA Pruitt, EXCHANGE TELLER, lab, RT, psych nurse, director of social media marketing, curator horticultural museum, teacher, chairman & chief executive officer, residential case manager)? Give summary @ -No Was smoking cessation discussed for >3mins.? @ -No Was critical care preformed (if so, how long)? @ -No Were there social determinants of health that impacted care today? How? (Homelessness, low income, unemployed, alcoholism, drug addiction, transportation, low edu. Level, literacy, decrease access to med. care, shelter, rehab)? @ -No Was there de-escalation of care discussed even if they declined (Discuss DNR or withdrawal of care, Hospice)? DNR status @ -No What co-morbidities impacted this encounter? (DM, HTN, Smoking, COPD, CAD, Cancer, CVA, ARF, Chemo, Hep., AIDS, mental health diagnosis, sleep apnea, morbid obesity)? @ -None Was patient admitted / discharged? Hospital course, mention meds given and route, prescriptions, significant lab abnormalities, going to OR and other pertinent info. @ -Discharge Patient presented to the ED with left knee pain. Patient already had negative imaging of this knee. Patient provided starter pack of Tylenol 3's and advised to follow up with orthopedics as scheduled. Discharged home in stable condition. Undiagnosed new problem with uncertain prognosis? @ -No Drug Therapy requiring intensive monitoring for toxicity (Heparin, Nitro, Insulin, Cardizem)? @ -No Were any procedures done? @ -No Diagnosis/symptom? @ -Left knee pain Acute, or Chronic, or Acute on Chronic? @ -Acute on chronic Uncomplicated (without systemic symptoms) or Complicated (systemic symptoms)? @ -Uncomplicated Side effects of treatment? @ -No Exacerbation, Progression, or Severe Exacerbation? @ -No Poses a threat to life or bodily function? How? (Chest pain, [place], [place], pneumonia, PE, COPD, DKA, ARF, appy, cholecystitis, CVA, Diverticulitis, Homicidal, Suicidal, threat to staff... and all critical care pts) @ -No Disposition Clinical Impression: Knee pain Disposition: HOME SELF-CARE Condition: Good Instructions (If sedation given, give patient instructions): Knee Pain (ED) Additional Instructions: Please return to the Emergency Department if symptoms worsen or any other concerns. Is patient prescribed a controlled substance at d/c from ED?: No Referrals: Ashley Langston MD [Primary Care Provider] - 1-2 days Time of Disposition: 01:32
[2023-01-11 01:51] VITALS: BP 109/75; PULSE 71; RESP 16
== END 2023-01-11 01:50 | disposition home or self-care (01) ==
LOC: EC
DX: M25.562 Pain in left knee (principal); Z86.59 Personal history of other mental and behavioral disorders; W19.XXXA Unspecified fall, initial encounter
CPT/HCPCS: 99283

== ENCOUNTER → 2023-03-05 | Outpatient (CLI) | payer OTHER ==
[2023-03-06 02:23] LABS: HCT 44.8 % (37.2-46.3); HGB 13.8 g/dL (12.0-15.0); MCV 86.3 FL (80.0-97.0); RBC 5.19 X 10*6/uL (4.10-5.20); WBC 8.17 X 10*3/uL (4.50-10.00)
[2023-03-06 02:24] LABS: Basophils # (A) 0.08 X 10*3/uL (0.00-0.10); Eosinophils # (A) 0.14 X 10*3/uL (0.04-0.35); Eosinophils % (A) 1.7 %; Lymphocytes # (A) 2.04 X 10*3/uL (0.90-5.00); MCH 26.6 pg (27.0-32.0); MCHC 30.8 g/dL (32.0-37.0); Mean Platelet Volume 12.2 FL (9.5-12.2); Monocytes # (A) 0.42 X 10*3/uL (0.20-1.00); Monocytes % (A) 5.1 %; NRBC Per 100 WBC 0 X 10*3/uL (0.00-0.01); Neutrophils # (A) 5.45 X 10*3/uL (1.80-7.70); Neutrophils % (A) 66.7 %; Platelet Count 215 X 10*3/uL (140-440); RDW 13.7 % (11.5-14.5)
[2023-03-06 02:43] LABS: Anion Gap 10.7 mmol/L (4.00-12.00); Carbon Dioxide 23.3 mmol/L (21.6-31.8); Potassium 4.1 mmol/L (3.5-5.5)
== END | disposition home or self-care (01) ==
LOC: LABWHC1 16:33
PROVIDERS: ATTEND Orthopaedic Surgery
DX: Z01.812 Encounter for preprocedural laboratory examination (principal); M23.92 Unspecified internal derangement of left knee
CPT/HCPCS: 36415; 80051; 85025

== ENCOUNTER 2023-03-12 11:53 | Day surgery (SDC) | payer OTHER ==
[2023-03-05 09:42] VITALS: BMI 34.7
--- NOTE | 2023-03-11 23:24 | HP ---
HISTORY AND PHYSICAL DATE OF SURGERY: 03/12/2023. HISTORY OF PRESENT ILLNESS: Sarah Salazar is a 32-year-old patient seen with progressive left knee pain. We discussed options for treatment. She elected to proceed with left knee arthroscopy. Consent was obtained. PAST MEDICAL HISTORY: Noncontributory. PAST SURGICAL HISTORY: Knee arthroscopy, tubal ligation. DAILY MEDICATIONS: Tylenol. ALLERGIES: None. SOCIAL HISTORY: She denies tobacco use. PHYSICAL EVALUATION OF THE LEFT KNEE: Range of motion is 0 to 110 degrees. Mild effusion. Tenderness along the medial joint line. Positive medial Madelin's. Ligaments stable. Hip rotation is without pain. Distal neurovascular exam is intact. IMAGING STUDIES: Radiographs of the left knee revealed mild osteoarthritis. Left knee MRI revealed mild effusion. IMPRESSION: Internal derangement of left knee with meniscal tear versus osteochondral tear. PLAN: Left knee arthroscopy with partial meniscectomy versus chondroplasty and debridement. MMODL / IJN: [id number] /
[~2023-03-12 11:53] MED LIST changes: +MIDAZOLAM 2 MG/2 ML VIAL IV PRN; -ONDANSETRON 4 MG/2 ML VIAL IVP ONE; +SCOPOLAMINE 1 MG/72 HR PATCH TRANSDERM ONE
[2023-03-12] MEDS: ONDANSETRON 4 MG/2 ML VIAL IVP ONE ×2 (12:34→16:00)
[2023-03-12] MEDS ORDERED: PROPOFOL 10 MG/ML 20 ML VIAL IV ONE (14:03)
[2023-03-12] MEDS ORDERED: KETOROLAC 15 MG/ML 1 ML VIAL ONE (14:03)
[2023-03-12] MEDS ORDERED: HYDROmorphone (PF) 1 MG/ML ONE (14:03)
[2023-03-12] MEDS ORDERED: MIDAZOLAM 2 MG/2 ML VIAL ONE (14:03)
[2023-03-12] MEDS ORDERED: LIDOCAINE 1% INJ 10MG/ML (20 ML MDV) ONE (14:03)
[2023-03-12] MEDS ORDERED: fentaNYL (PF) 50 MCG/ML 2 ML AMP ONE (14:03)
[2023-03-12] MEDS ORDERED: BUPIVACAINE (PF) 0.25% 30 ML VIAL INTRAARTIC ONE ×2 (14:23→14:34)
--- NOTE | 2023-03-12 14:57 | P.OP ---
Date of Procedure: 03/12/23 Preoperative Diagnosis: Internal derangement left knee Postoperative Diagnosis: 1. Tear medial and lateral meniscus left knee 2. Reactive synovitis medial, lateral and suprapatellar compartments left knee 3. Grade I/II chondromalacia patella left knee Procedure(s) Performed: 1. Arthroscopic partial medial and lateral meniscectomy left knee 2. Arthroscopic partial synovectomy medial, lateral and suprapatellar compartments left knee 3. Arthroscopic chondroplasty patella left knee Anesthesia: JOSHUAA, local Surgeon: Moncho Parker Estimated Blood Loss (ml): 6 Pathology: none sent Condition: stable Disposition: PACU Indications for Procedure: 32-year-old patient seen with progressive left knee pain. After having treatment options discussed, she elected to proceed with arthroscopy. Operative Findings: See description of procedure Description of Procedure: Patient was taken to the operative suite. Patient underwent a general anesthetic by the department of anesthesia. Patient was given preoperative antibiotics. The left lower extremity was placed in a well-padded arthroscopic leg watts. The left leg was prepped and draped in the normal sterile orthopedic fashion. A lateral parapatellar and suprapatellar incision was made. Trochars were inserted. Arthroscopy was initiated. Suprapatellar pouch revealed diffuse thick reactive synovitis. The patellofemoral joint appeared to articular congruently. There was grade I/II chondromalacia of the patella with osteochondral flap tears. The scope was guided into the medial gutter. No loose bodies or plica were identified. The scope was then guided into the medial compartment. A medial parapatellar incision was made. Trocar inserted followed by probe. There was a radial tear involving the junction of the posterior horn and mid body of the medial meniscus. There were grade I chondromalacia changes of the medial compartment. There was some thick reactive cellulitis anteriorly. I performed a partial medial meniscectomy getting down to stable meniscal tissue. I performed a partial synovectomy decompressing the reactive synovitis. The residual meniscus was probed and was found to be stable. There was good decompression of the synovitis. Scope and probe were then guided into the intercondylar notch. Cruciates were identified, probed and found to be stable. The scope and probe were then guided into lateral compartment. There was a small radial tear mid bilateral meniscus. There was no chondromalacia present lateral compartment. There was some thick reactive cellulitis anteriorly. I performed a partial lateral meniscectomy. I performed a partial synovectomy. The residual meniscus was stable. There was good decompression of the synovitis. The scope was in guided back into the suprapatellar compartment. I introduced a motorized shaver into the suprapatellar compartment. I performed a chondroplasty of the patella getting down to a stable osteochondral tissue. I performed a partial synovectomy decompressing I think reactive esophagitis. The residual osteochondral surface of the patella was stable. There was good decompression of the synovitis. Instruments were now removed from the joint. The joint was infiltrated with .25% Marcaine. Steri-Strips were applied to the portal sites. Sterile dressings were applied. The patient was placed into a ADEEL hose. No tourniquet was utilized. The patient was awakened, transferred to a bed and taken to recovery stable satisfactory condition.
[2023-03-12 15:09] VITALS: TEMP 96.8
[2023-03-12] MEDS ORDERED: HYDROcodone/APAP 5-325MG 1 EACH TAB ONE (15:53)
[2023-03-12] MEDS ORDERED: HYDROcodone/APAP 5-325MG 1 EACH TAB PO ONE (15:54)
[2023-03-12] MEDS ORDERED: ONDANSETRON 4 MG/2 ML VIAL ONE (16:02)
[2023-03-12 16:48] VITALS: BP 107/69; PULSE 95; RESP 16
== END 2023-03-12 16:33 | disposition home or self-care (01) ==
LOC: OR 11:53
PROVIDERS: ATTEND Orthopaedic Surgery
DX: S83.282A Other tear of lateral meniscus, current injury, left knee, initial encounter (principal); S83.242A Other tear of medial meniscus, current injury, left knee, initial encounter; M65.162 Other infective (teno)synovitis, left knee; M22.42 Chondromalacia patellae, left knee; F32.A Depression, unspecified; F90.9 Attention-deficit hyperactivity disorder, unspecified type; Z96.659 Presence of unspecified artificial knee joint; Z98.51 Tubal ligation status; Z79.899 Other long term (current) drug therapy
CPT/HCPCS: 81025; 29880; J2250; J1100; J0690; J2405; J2001; J3010; J1170; J1885; J2704; J0665

== ENCOUNTER → 2024-04-13 | Outpatient (CLI) | payer OTHER ==
--- NOTE | 2024-04-13 13:52 | US ---
EXAMINATION TYPE: US thyroid st tissue head/neck DATE OF EXAM: 04/13/2024 COMPARISON: NONE CLINICAL INDICATION: Female, 33 years old with history of Z80.8 FAMILY HX OF MALIG ANTHONY OF ORGANS; Fam joe history of thyroid ca TECHNIQUE: Grayscale and color Doppler imaging of the thyroid gland. FINDINGS: GLAND SIZE: Right Lobe: 4.0 x 1.6 x 1.5 cm Overall Parenchyma: homogeneous Left Lobe: 4.1 x 1.5 x 1.2 cm Overall Parenchyma: homogeneous Isthmus Thickness: .2 cm NODULES RIGHT: # of nodules measured on right: 0 LEFT: # of nodules measured on left: 0 ISTHMUS: # of nodules measured in the isthmus: 0 Bilateral neck scanned, no evidence of lymphadenopathy. Homogeneous normal-size thyroid without discrete nodule. IMPRESSION: As above. 2017 ACR TI-RADS LEVEL: TI-RADS 1 - BENIGN: No FNA *Highest TI-RADS level nodule reported [email or web address] [facility], , 04/13/2024 1:50 PM
== END | disposition home or self-care (01) ==
LOC: RADUSWWP 10:58
PROVIDERS: ATTEND Family Medicine
DX: Z80.8 Family history of malignant neoplasm of other organs or systems (principal)
CPT/HCPCS: 76536

== ENCOUNTER → 2024-04-14 | Outpatient (CLI) | payer OTHER ==
--- NOTE | 2024-04-15 09:51 | MR ---
EXAMINATION TYPE: MR knee LT wo con DATE OF EXAM: 04/14/2024 6:42 PM COMPARISON: 01/06/2023. CLINICAL INDICATION: Female, 33 years old with history of M25.562 PAIN IN LEFT KNEE, Inner part of Le ft knee pain, swelling and locking since December TECHNIQUE: Multi planar, multi sequence imaging was performed of the knee including: Triplane proton density fat-saturated images and T1-weighted imaging. No Gadolinium was given. IV Contrast: mL (none if empty) FINDINGS: Medial meniscus: Free edge fraying of the meniscal body. Medial femorotibial cartilage: Intact Medial collateral ligament: Intact Lateral meniscus: Posterior horn free edge fraying/meniscal tear. Series 411 image 12. Additional free edge fraying of the body series 501 image 22. Lateral femorotibial cartilage: Intact Lateral collateral ligament complex: Intact Patellofemoral alignment: Somewhat laterally displaced patella on a shallow trochlear groove. Patellofemoral cartilage: Intact Extensor mechanism: Intact. Joint/bursal fluid: Trace fluid in the area of where a Lua's cyst but per side Muscles/tendons: The patellar tendon, quadriceps tendon, IT band, pes anserinus tendons, semimembrano frank tendon, popliteus tendon, and biceps femoris tendon are all within normal limits. Bone marrow: Similar bony protuberance at the radial tuberosity with evidence of prior Nithin-Catherine latter. A PD signal in the area of the anterior cruciate ligament insertion on the tibia compatible w ith ganglion cyst. Additional loculated ganglion cyst anterior to the anterior root of the medial men iscus measuring 18 x 9 x 11 mm Anterior cruciate ligament: Intact. Posterior cruciate ligament: Intact. Soft tissues: Unremarkable. IMPRESSION: 1. Lateral meniscus free edge fraying of the posterior horn and body. 2. Medial meniscal body free edge fraying. 3. No Loculated ganglion cyst anterior to the anterior horn of the medial meniscus measuring up to 1 8 x 9 x 11 mm. 4. No definitive evidence to suggest ligamentous injury. No joint bodies identified. 5. Similar bony protuberance at the radial tuberosity with evidence of prior Alkol-Schlatter. 6. Somewhat laterally displaced patella on a shallow trochlear groove. This can predispose patients to transient lateral patellar dislocation relocation. [facility], , 04/15/2024 9:49 AM
== END | disposition home or self-care (01) ==
LOC: RADMRIMAIN 17:36
PROVIDERS: ATTEND Orthopaedic Surgery
DX: M25.562 Pain in left knee (principal)

== ENCOUNTER 2024-04-24 22:03 | Emergency (ER) | payer OTHER ==
[2024-04-24 22:24] VITALS: BP 117/82; PULSE 80; RESP 16; TEMP 99
--- NOTE | 2024-04-24 22:39 | ED ---
Extremity Problem HPI - General Chief complaint: Extremity Problem,Nontraumatic Stated complaint: Knee pain Time Seen by Provider: 04/24/24 22:38 Source: patient, RN notes reviewed, old records reviewed Mode of arrival: ambulatory Limitations: no limitations - History of Present Illness Initial comments: 33-year-old female presented to ER for evaluation of left knee pain. Patient states she is scheduled for meniscus repair with on 05/26/24. She states she has been taking [id number] Tylenol for pain control outpatient but has not had any relief with this. She states she is unable to handle the pain at this time. She states it makes it difficult for her to ambulate, bend or straighten her knee. She states her knee is a throbbing pain. She does report some paresthesias to the medial aspect radiating down to her foot occasionally. No new injuries or traumas. Patient has no other complaints. - Related Data Home Medications Medication Instructions Recorded Confirmed Acetaminophen Tab [Tylenol Tab] 500 - 1,000 mg PO Q4-6H PRN 03/28/22 03/12/23 Previous Rx's Medication Instructions Recorded HYDROcodone/APAP 5-325MG [[place] 1 tab PO Q6HR PRN #12 tab 03/12/23 5-325] Allergies Allergy/AdvReac Type Severity Reaction Status Date / Time No Known Allergies Allergy Verified 04/24/24 22:20 Review of Systems ROS Statement: Those systems with pertinent positive or pertinent negative responses have been documented in the HPI. ROS Other: All systems not noted in ROS Statement are negative. Past Medical History Past Medical History: GERD/Reflux Additional Past Medical History / Comment(s): left knee pain History of Any Multi-Drug Resistant Organisms: None Reported Past Surgical History: Tubal Ligation Additional Past Surgical History / Comment(s): Cerclage 2, arthroscopy left knee (jan 2022) Past Anesthesia/Blood Transfusion Reactions: Postoperative Nausea & Vomiting (PONV) Additional Past Anesthesia/Blood Transfusion Reaction / Comment(s): grand mother=ponv Past Psychological History: ADD/ADHD Smoking Status: Never smoker Past Alcohol Use History: None Reported Past Drug Use History: None Reported - Past Family History Mother Family Medical History: No Reported History General Exam Limitations: no limitations General appearance: alert, in no apparent distress Respiratory exam: Present: normal lung sounds bilaterally. Absent: respiratory distress, wheezes, rales, rhonchi, stridor Cardiovascular Exam: Present: regular rate, normal rhythm, normal heart sounds. Absent: systolic murmur, diastolic murmur, rubs, gallop, clicks Extremities exam: Present: normal inspection, full ROM, tenderness (Left medial knee anterior and posterior joint line), normal capillary refill (2+ left DP pulse), other (No calf tenderness or overlying skin changes extensor mechanism intact) Neurological exam: Present: alert, oriented X3, CN II-XII intact Skin exam: Present: warm, dry, intact, normal color. Absent: rash Course Vital Signs 04/24/24 22:20 Temperature 99.0 F Pulse Rate 80 Respiratory 16 Rate Blood Pressure 117/82 O2 Sat by Pulse 99 Oximetry Medical Decision Making - Medical Decision Making Was pt. sent in by a medical professional or institution (, PA, DANCE CHOREOGRAPHER, urgent care, hospital, or fpc...) When possible be specific @ -No Did you speak to anyone other than the patient for history (EMS, parent, family, police, friend...)? What history was obtained from this source @ -No Did you review nursing and triage notes (agree or disagree)? Why? @ -I reviewed and agree with nursing and triage notes Were old charts reviewed (outside hosp., previous admission, EMS record, old EKG, old radiological studies, urgent care reports/EKG's, fpc records)? Report findings @ -MRI reviewed of left knee from 04-14-2024. Medial and lateral meniscus free edge fraying noted consistent with meniscal tear. Differential Diagnosis (chest pain, altered mental status, abdominal pain women, abdominal pain men, vaginal bleeding, weakness, fever, dyspnea, syncope, headache, dizziness, GI bleed, back pain, seizure, CVA, palpatations, mental health, musculoskeletal)? @ -Differential Musculoskeletal: Muscular strain, contusion, ligament sprain, fracture, arthritis, septic arthritis, bursitis, cellulitis, muscle spasm, nerve compression, DVT, arterial occlusion, herpes zoster, electrolyte abnormality, tumor.... This is not meant to be in all inclusive list EKG interpreted by me (3pts min.). @ -None done X-rays interpreted by me (1pt min.). @ -None done CT interpreted by me (1pt min.). @ -None done U/S interpreted by me (1pt. min.). @ -None done What testing was considered but not performed or refused? (CT, X-rays, U/S, labs)? Why? @ -Imaging considered but not performed as patient denies any new injuries or traumas to left knee. Patient is agreeable. What meds were considered but not given or refused? Why? @ -None Did you discuss the management of the patient with other professionals (professionals i.e. , PA, DANCE CHOREOGRAPHER, lab, RT, psych nurse, clinical social work therapist, animal keeper, teacher, licensed loan officer, cyanide case hardener)? Give summary @ -No Was smoking cessation discussed for >3mins.? @ -No Was critical care preformed (if so, how long)? @ -No Were there social determinants of health that impacted care today? How? (Homelessness, low income, unemployed, alcoholism, drug addiction, transportation, low edu. Level, literacy, decrease access to med. care, halfway, rehab)? @ -No Was there de-escalation of care discussed even if they declined (Discuss DNR or withdrawal of care, Hospice)? DNR status @ -No What co-morbidities impacted this encounter? (DM, HTN, Smoking, COPD, CAD, Cancer, CVA, ARF, Chemo, Hep., AIDS, mental health diagnosis, sleep apnea, morbi d obesity)? @ -None Was patient admitted / discharged? Hospital course, mention meds given and route, prescriptions, significant lab abnormalities, going to OR and other pertinent info. @ -[Discharge. 33-year-old female presented the ER for evaluation of left knee pain. Vitals within acceptable limits. Patient is neurovascularly intact. Patient will be given symptomatic control in the ER with ibuprofen. Patient discharged with Tylenol 3 starter pack and instructed to only take with extreme pain. I recommended outpatient ibuprofen and Tylenol as well for pain control. Instructed patient to follow-up with orthopedics in the next 24 to 48 hours for further pain management. Patient is agreeable for discharge at this time. Patient discharged stable condition. Return parameters discussed. Patient verbally expressed understanding and agreement with care plan. Case discussed with ED attending, Dr. Marc. Undiagnosed new problem with uncertain prognosis? @ -No Drug Therapy requiring intensive monitoring for toxicity (Heparin, Nitro, Insulin, Cardizem)? @ -No Were any procedures done? @ -No Diagnosis/symptom? @ -Knee pain/meniscus injury Acute, or Chronic, or Acute on Chronic? @ -Acute Uncomplicated (without systemic symptoms) or Complicated (systemic symptoms)? @ -Uncomplicated Side effects of treatment? @ -No Exacerbation, Progression, or Severe Exacerbation? @ -No Poses a threat to life or bodily function? How? (Chest pain, [place], [place], pneumonia, PE, COPD, DKA, ARF, appy, cholecystitis, CVA, Diverticulitis, Homicidal, Suicidal, threat to staff... and all critical care pts) @ -No Disposition Clinical Impression: Knee pain Disposition: HOME SELF-CARE Condition: Stable Additional Instructions: Follow-up with orthopedics. I recommend [id number] ibuprofen and Tylenol for pain control. Take Tylenol threes only for extreme pain. Return to the ER for any new or worsening concerns. Is patient prescribed a controlled substance at d/c from ED?: No Referrals: Ashley Langston MD [Primary Care Provider] - 1-2 days Moncho Parker DO [Doctor of Osteopathic Medicine] - 1-2 days Time of Disposition: 22:39
[2024-04-24] MEDS: ACET/COD 300 MG/30 MG STARTER PACK 6 TAB BTL PO STA (22:44)
[2024-04-24] MEDS: IBUPROFEN 600 MG TAB PO STA (22:45)
== END 2024-04-24 22:45 | disposition home or self-care (01) ==
LOC: EC 22:03
DX: S83.8X2A Sprain of other specified parts of left knee, initial encounter (principal); X58.XXXA Exposure to other specified factors, initial encounter
CPT/HCPCS: 99284

== ENCOUNTER → 2024-05-11 | Outpatient (CLI) | payer OTHER ==
[2024-05-11 18:39] LABS: Anion Gap 8.1 mmol/L (4.00-12.00); Carbon Dioxide 25.9 mmol/L (21.6-31.8)
[2024-05-11 19:06] LABS: Basophils # (A) 0.07 X 10*3/uL (0.00-0.10); Basophils % (A) 0.8 %; Eosinophils # (A) 0.21 X 10*3/uL (0.04-0.35); Eosinophils % (A) 2.5 %; HCT 41.6 % (37.2-46.3); Lymphocytes # (A) 1.89 X 10*3/uL (0.90-5.00); Lymphocytes % (A) 22.2 %; MCH 25.9 pg (27.0-32.0); MCHC 31.3 g/dL (32.0-37.0); Mean Platelet Volume 11.8 FL (9.5-12.2); Monocytes # (A) 0.48 X 10*3/uL (0.20-1.00); Monocytes % (A) 5.6 %; NRBC Per 100 WBC 0 X 10*3/uL (0.00-0.01); Neutrophils # (A) 5.86 X 10*3/uL (1.80-7.70); Neutrophils % (A) 68.7 %; Platelet Count 224 X 10*3/uL (140-440); RBC 5.01 X 10*6/uL (4.10-5.20); RDW 13.5 % (11.5-14.5); WBC 8.53 X 10*3/uL (4.50-10.00)
== END | disposition home or self-care (01) ==
LOC: LABPAT 14:37
PROVIDERS: ATTEND Orthopaedic Surgery
DX: Z01.812 Encounter for preprocedural laboratory examination (principal); M23.92 Unspecified internal derangement of left knee
CPT/HCPCS: 80051; 85025

== ENCOUNTER 2024-05-26 09:59 | Day surgery (SDC) | payer OTHER ==
--- NOTE | 2024-05-25 23:14 | HP ---
HISTORY AND PHYSICAL DATE OF SURGERY: 05/26/2024. HISTORY OF PRESENT ILLNESS: Sarah Salazar is a 33-year-old patient, who was seen with progressive left knee pain. We discussed options regarding treatment. She elected to proceed with left knee arthroscopy. Consent is obtained. PAST MEDICAL HISTORY: Noncontributory. SURGICAL HISTORY: Tubal ligation, knee arthroscopy. DAILY MEDICATIONS: 1. Tylenol. 2. Ibuprofen. ALLERGIES: None. SOCIAL HISTORY: She denies tobacco use. PHYSICAL EVALUATION OF THE LEFT KNEE: Range of motion is 0 to130 degrees. Mild effusion. She has tenderness along the medial and lateral joint lines. Positive medial Madelin's. Positive lateral Madelin's. Ligaments stable. Hip rotation without pain. Distal neurovascular exam intact. IMAGING: Left knee radiographs reveal mild osteoarthritis, old medial patellar avulsion fracture. MRI of the left knee revealed medial ganglion cyst with meniscal tear. IMPRESSION: Internal derangement of left knee with medial meniscal tear and meniscal cyst. PLAN: Left knee arthroscopy with partial medial meniscectomy and debridement. MMODL / IJN: [id number] /
[2024-05-26] MEDS: IV FLUID CONTINUATION 1,000 ML IV ONE (10:34)
[2024-05-26] MEDS: LACTATED RINGERS 1,000 ML IV SCH (10:49)
[2024-05-26] MEDS: DEXAMETHASONE SOD PHOSPHATE 4 MG/ML 1 ML VIAL IV ONE (10:53)
[2024-05-26] MEDS: ONDANSETRON 4 MG/2 ML VIAL IVP ONE (10:53)
[2024-05-26] MEDS ORDERED: LIDOCAINE 1% INJ 10MG/ML (20 ML MDV) ONE (11:44)
[2024-05-26] MEDS ORDERED: KETOROLAC 15 MG/ML 1 ML VIAL ONE (11:44)
[2024-05-26] MEDS ORDERED: fentaNYL (PF) 50 MCG/ML 2 ML AMP ONE (11:44)
[2024-05-26] MEDS ORDERED: MIDAZOLAM 2 MG/2 ML VIAL ONE (11:44)
[2024-05-26] MEDS ORDERED: PROPOFOL 10 MG/ML 20 ML VIAL IV ONE (11:44)
[2024-05-26] MEDS: BUPIVACAINE (PF) 0.25% 30 ML VIAL MISCELLANE ONE ×2 (11:45→12:22)
[2024-05-26] MEDS: ceFAZolin 2 GM in DEXTROSE 5% IN WATER 50 ML IVPB PRN (11:48)
--- NOTE | 2024-05-26 12:35 | P.OP ---
Date of Procedure: 05/26/24 Preoperative Diagnosis: Internal derangement left knee Postoperative Diagnosis: 1. Tear medial and lateral meniscus left knee 2. Reactive synovitis medial, lateral and suprapatellar compartments left knee Procedure(s) Performed: 1. Arthroscopic partial medial and lateral meniscectomy left knee 2. Arthroscopic partial synovectomy medial, lateral and suprapatellar compartments left knee Anesthesia: GETA, local Surgeon: Moncho Parker Estimated Blood Loss (ml): 5 Pathology: none sent Condition: stable Disposition: PACU Indications for Procedure: 33-year-old patient seen with progressive left knee pain. After having treatment options discussed, she elected to proceed with arthroscopy Operative Findings: See description of procedure Description of Procedure: Patient was taken to the operative suite. Patient underwent a general anesthetic by the department of anesthesia. Patient was given preoperative antibiotics. The left lower extremity was placed in a well-padded arthroscopic leg watts. The left leg was prepped and draped in the normal sterile orthopedic fashion. A lateral parapatellar and suprapatellar incision was made. Trochars were inserted. Arthroscopy was initiated. Suprapatellar pouch rev ealed diffuse thick reactive synovitis. The patellofemoral joint appeared to articulate congruently. There was some early fissuring of the osteochondral surface of the patella with no osteochondral tears present. The scope was guided into the medial gutter. No loose bodies or plica were identified. The scope was then guided into the medial compartment. A medial parapatellar incision was made. Trocar inserted followed by probe. There was a radial tear involving the mid body area of the medial meniscus. There was some early fissuring of the medial femoral condyle with no osteochondral flap tears. There was some thick reactive synovitis anteriorly. I performed a partial medial meniscectomy getting down to stable meniscal tissue. I performed a partial synovectomy decompressing the reactive synovitis. The residual meniscus was stable. There was good decompression of the synovitis. Scope and probe were then guided into the intercondylar notch. Cruciates were identified, probed and found to be stable. The scope and probe were then guided into lateral compartment. There was a tear involving the mid body and posterior horns of the lateral meniscus. There was some thick reactive synovitis anteriorly. There was no significant chondromalacia. I performed a partial lateral meniscectomy getting down to stable meniscal tissue. I performed a partial synovectomy decompressing the reactive synovitis. The residual meniscus was probed and was found to be stable. There was good decompression of the synovitis. The scope was in guided back into the suprapatellar compartment. I introduced a motorized shaver into the suprapatellar compartment. I performed a partial synovectomy. The shaver was now removed. There was good decompression of the synovitis. I took 1 more look around the entire knee, no residual debris. Instruments were now removed from the joint. The joint was infiltrated with .25% Marcaine. Steri-Strips were applied to the portal sites. Sterile dressings were applied. The patient was placed into a ADEEL hose. No tourniquet was utilized. The patient was awakened, transferred to a bed and taken to recovery stable satisfactory condition.
[2024-05-26 12:42] VITALS: TEMP 97.2
[2024-05-26] MEDS: HYDROmorphone 0.5 MG/0.5 ML SYRINGE IVP PRN (12:46)
[2024-05-26 13:09] VITALS: RESP 16
[2024-05-26] MEDS: HYDROcodone/APAP 5-325MG 1 EACH TAB PO STA (13:41)
[2024-05-26 14:01] VITALS: BP 101/64; PULSE 75
== END 2024-05-26 14:21 | disposition home or self-care (01) ==
LOC: OR 09:59
PROVIDERS: ATTEND Orthopaedic Surgery
DX: S83.282A Other tear of lateral meniscus, current injury, left knee, initial encounter (principal); S83.242A Other tear of medial meniscus, current injury, left knee, initial encounter; M23.032 Cystic meniscus, other medial meniscus, left knee; M65.862 Other synovitis and tenosynovitis, left lower leg; M17.12 Unilateral primary osteoarthritis, left knee; Z91.89 Other specified personal risk factors, not elsewhere classified; X58.XXXA Exposure to other specified factors, initial encounter
CPT/HCPCS: 29880; 29876; J1100; J0690; J2405; J1171; J0665

== ENCOUNTER 2024-06-27 20:51 | Emergency (ER) | payer OTHER ==
[2024-06-27 20:55] VITALS: RESP 18; TEMP 98.3
--- NOTE | 2024-06-27 21:05 | ED ---
General Adult HPI - General Chief complaint: Extremity Injury, Upper Stated complaint: R Shoulder Pain Time Seen by Provider: 06/27/24 20:56 Source: patient, RN notes reviewed, old records reviewed Mode of arrival: ambulatory Limitations: no limitations - History of Present Illness Initial comments: 33 yo female presenting with right shoulder pain. Pain has been present for the past several days. No specific injury. Pain is in the anterior shoulder. She denies chest pain or difficulty breathing. Denies fever. Pain is worse with range of motion. She denies any symptoms into her forearm or hand. She states that this is worse with lifting. - Related Data Home Medications Medication Instructions Recorded Confirmed Acetaminophen Tab [Tylenol Tab] 500 - 1,000 mg PO Q4-6H PRN 03/28/22 05/26/24 Ergocalciferol [Vitamin D2 (1250 1,250 mcg PO WEEKLY 05/23/24 05/23/24 Mcg = 88064 Iu)] Previous Rx's Medication Instructions Recorded HYDROcodone/APAP 5-325MG [Abell 1 tab PO Q6HR PRN #12 tab 05/26/24 5-325] Allergies Allergy/AdvReac Type Severity Reaction Status Date / Time No Known Allergies Allergy Verified 06/27/24 20:55 Review of Systems ROS Statement: Those systems with pertinent positive or pertinent negative responses have been documented in the HPI. ROS Other: All systems not noted in ROS Statement are negative. Past Medical History Past Medical History: GERD/Reflux Additional Past Medical History / Comment(s): left knee pain History of Any Multi-Drug Resistant Organisms: None Reported Past Surgical History: Orthopedic Surgery, Tubal Ligation Additional Past Surgical History / Comment(s): Cerclage 2, arthroscopy left knee x2 in 2021 & 2023 Past Anesthesia/Blood Transfusion Reactions: Postoperative Nausea & Vomiting (PONV) Additional Past Anesthesia/Blood Transfusion Reaction / Comment(s): grandmother=ponv Past Psychological History: ADD/ADHD Smoking Status: Never smoker - Past Family History Mother Family Medical History: No Reported History General Exam Limitations: no limitations General appearance: alert, in no apparent distress Head exam: Present: atraumatic, normocephalic Eye exam: Present: normal appearance, PERRL ENT exam: Present: normal exam Neck exam: Present: normal inspection. Absent: tenderness, meningismus Respiratory exam: Present: normal lung sounds bilaterally. Absent: respiratory distress, wheezes Cardiovascular Exam: Present: regular rate, normal rhythm GI/Abdominal exam: Present: soft. Absent: distended, tenderness, guarding Extremities exam: Present: full ROM (Pain made worse with range of motion), tenderness (AC tenderness right shoulder), other (Normal jewel blocker and sawyer strength, normal sensation, distal pulses intact) Neurological exam: Present: alert, oriented X3, CN II-XII intact. Absent: motor sensory deficit Psychiatric exam: Present: normal affect, normal mood Skin exam: Present: warm, dry, intact Course Vital Signs 06/27/24 20:52 Temperature 98.3 F Pulse Rate 77 Respiratory 18 Rate Blood Pressure 120/80 O2 Sat by Pulse 97 Oximetry Medical Decision Making - Medical Decision Making Was pt. sent in by a medical professional or institution (, [facility], ABNORMAL PSYCHOLOGY TEACHER, urgent care, hospital, or fdc...) When possible be specific @ -No Did you speak to anyone other than the patient for history (EMS, parent, family, police, friend...)? What history was obtained from this source @ -No Did you review nursing and triage notes (agree or disagree)? Why? @ -I reviewed and agree with nursing and triage notes Were old charts reviewed (outside hosp., previous admission, EMS record, old EKG, old radiological studies, urgent care reports/EKG's, fdc records)? Report findings @ -No old charts were reviewed Differential Musculoskeletal Muscular strain, contusion, ligament sprain, fracture, arthritis, septic arthritis, bursitis, cellulitis, muscle spasm, nerve compression, DVT, arterial occlusion, herpes zoster, electrolyte abnormality, tumor.... This is not meant to be in all inclusive list EKG interpreted by me (3pts min.). @ -As above X-rays interpreted by me (1pt min.). @X-ray of the right shoulder is negative for fracture dislocation, no acute findings. CT interpreted by me (1pt min.). @ -None done U/S interpreted by me (1pt. min.). @ -None done What testing was considered but not performed or refused? (CT, X-rays, U/S, labs)? Why? @ -None What meds were considered but not given or refused? Why? @ -None Did you discuss the management of the patient with other professionals (professionals i.e. , PA, ABNORMAL PSYCHOLOGY TEACHER, lab, RT, psych nurse, social sciences professor, hospitalist nocturnist physician, teacher, court collections officer, case finishing machine adjuster)? Give summary @ -No Was smoking cessation discussed for >3mins.? @ -No Was critical care preformed (if so, how long)? @ -No Were there social determinants of health that impacted care today? How? (Homele ssness, low income, unemployed, alcoholism, drug addiction, transportation, low edu. Level, literacy, decrease access to med. care, fdc, rehab)? @ -No Was there de-escalation of care discussed even if they declined (Discuss DNR or withdrawal of care, Hospice)? DNR status @ -No What co-morbidities impacted this encounter? (DM, HTN, Smoking, COPD, CAD, Cancer, CVA, ARF, Chemo, Hep., AIDS, mental health diagnosis, sleep apnea, morbid obesity)? @ -None Was patient admitted / discharged? Hospital course, mention meds given and route, prescriptions, significant lab abnormalities, going to OR and other pertinent info. @ -33-year-old female with mechanical right shoulder pain reproducible on exam predominantly over the AC joint. X-rays negative. Patient is instructed to rest, ice, and take Tylenol Motrin. Follow-up with primary care provider. Undiagnosed new problem with uncertain prognosis? @ -No Drug Therapy requiring intensive monitoring for toxicity (Heparin, Nitro, Insulin, Cardizem)? @ -No Were any procedures done? @ -No Diagnosis/symptom? @ -Right shoulder strain Acute, or Chronic, or Acute on Chronic? @Acute Uncomplicated (without systemic symptoms) or Complicated (systemic symptoms)? @ -Uncomplicated Side effects of treatment? @ -No Exacerbation, Progression, or Severe Exacerbation? @ -No Poses a threat to life or bodily function? How? (Chest pain, [place], [place], pneumonia, PE, COPD, DKA, ARF, appy, cholecystitis, CVA, Diverticulitis, Homicidal, Suicidal, threat to staff... and all critical care pts) @ -No Disposition Clinical Impression: Strain of shoulder Disposition: HOME SELF-CARE Condition: Good Instructions (If sedation given, give patient instructions): Shoulder Pain (ED) Is patient prescribed a controlled substance at d/c from ED?: No Referrals: Ashley Langston MD [Primary Care Provider] - 1-2 days Time of Disposition: 21:30
--- NOTE | 2024-06-27 21:41 | XR ---
EXAMINATION TYPE: XR shoulder complete RT DATE OF EXAM: 06/27/2024 9:17 PM COMPARISON: None CLINICAL INDICATION: Female, 33 years old with history of pain; PHH, pain TECHNIQUE: XR shoulder complete RT; examined in AP, internally rotated and scapular Y projections. FINDINGS: No evidence of acute osseous pathology, joint dislocation, or soft tissue swelling. The remaining po rtions of the visualized chest are unremarkable. IMPRESSION: No acute osseous pathology. [facility], , 06/27/2024 9:39 PM
[2024-06-27 21:55] VITALS: BP 128/80; PULSE 70
== END 2024-06-27 21:56 | disposition home or self-care (01) ==
LOC: EC 20:51
DX: S46.911A Strain of unspecified muscle, fascia and tendon at shoulder and upper arm level, right arm, initial encounter (principal); X50.0XXA Overexertion from strenuous movement or load, initial encounter
CPT/HCPCS: 99283